=== PATIENT | female | born 1955 | race Caucasian/White ===

== ENCOUNTER 2021-02-27 11:18 | Emergency (ER) | payer MEDICAID, SELFPAY ==
--- NOTE | ~2021-02-27 | XR_ITS ---
EXAMINATION: XR CHEST CLINICAL INFORMATION: Shortness of breath and cough. Concern for pneumonia. COMPARISON: No priors. TECHNIQUE: Frontal view of the chest was obtained. FINDINGS: Lungs are mildly hypoexpanded. No consolidation or pulmonary edema. Mild interstitial thickening which may reflect sequelae of reactive airway disease or viral pneumonitis. No pneumothorax or pleural effusion. Cardiomediastinal silhouette within normal limits. No acute osseous abnormality. XR/XR chest 1V IMPRESSION: Hypoexpanded lungs. No consolidation. Mild interstitial thickening which may reflect sequelae of reactive airway disease or viral/atypical pneumonitis.
[2021-02-27 11:23] VITALS: BP 163/70; PULSE 69; RESP 20; TEMP 36.8; O2SAT 95; BMI 28.8
--- NOTE | 2021-02-27 12:21 | ECG_ITS ---
Test Reason : SOB Blood Pressure : / mmHG Vent. Rate : 060 BPM Atrial Rate : 060 BPM P-R Int : 136 ms QRS Dur : 070 ms QT Int : 418 ms P-R-T Axes : 027 -03 -05 degrees QTc Int : 418 ms Normal sinus rhythm Minimal voltage criteria for LVH, may be normal variant Borderline ECG No previous ECGs available Referred By: Ivonne Guzman Electronically Signed By:FILEMON GUILLORY
--- NOTE | 2021-02-27 12:22 | ED_ITS ---
HPI - General Adult General Chief complaint: General Medical Stated complaint: cough, fever, chest wall pain Time Seen by Provider: 02/27/21 12:07 Source: patient and family Mode of arrival: ambulatory Limitations: no limitations History of Present Illness HPI narrative: 65-year-old female with a past medical history of asthma, diabetes and hypertension here with cough, wheezing, shortness of breath, chest wall pain and subjective fevers x 9 days. Per family the patient received the pfizer vaccine 1. Of 2 on February 17. The next day she woke up with these symptoms. She was seen at a hospital in [place] and had an x-ray and a COVID screen and labs. She was diagnosed with bronchitis and was prescribed a course of azithromycin as well as a ProAir inhaler. She completed the course of antibiotics and has been using the inhaler but has continued symptoms. No abdominal pain, vomiting, diarrhea, leg swelling or pain Related Data Previous Rx's Medication Instructions Recorded albuterol sulfate 2.5 mg INHALATION Q4-6H PRN #75 ml 02/27/21 doxycycline monohydrate 100 mg PO BID #14 cap 02/27/21 prednisone 40 mg PO DAILY #8 tab 02/27/21 Allergies Allergy/AdvReac Type Severity Reaction Status Date / Time No Known Allergies Allergy Verified 02/27/21 11:22 Review of Systems Review of Systems: Yes all other systems are reviewed and are negative Constitutional: Constitutional: Reports no additional constitutional complai nts, Denies body ache(s), Denies chills, Reports fever(s) (subjective ), Denies headache(s) and Denies weakness Eyes: Eyes: Reports no additional eye complaints and Denies change in vision ENT: Reports system reviewed and no additional complaints, except as documented, Denies dizziness, Denies headache(s), Denies nasal congestion, Denies nasal discharge and Denies neck pain Cardiovascular: Cardiovascular: Reports no additional cardiovascular complaints, Reports chest pain (chest wall pain with coughing ), Denies leg edema and Reports dyspnea Respiratory: Respiratory: Reports no additional respiratory complaints, Reports cough and Reports dyspnea Gastrointestinal: Gastrointestinal: Reports no additional gastrointestinal complaints, Denies abdominal pain, Denies diarrhea, Denies nausea and Denies vomiting Genitourinary: Genitourinary: Reports no additional female genitourinary complaints and Denies urinary incontinence Musculoskeletal: Musculoskeletal: Reports no additional musculoskeletal complaints, Denies back pain, Denies arthralgias, Denies joint swelling, Denies neck pain, Denies numbness and Denies tingling Integumentary/Breasts: Skin/Breast: Reports system reviewed and no additional complaints, except as docu and Denies rash Neurologic: Reports system reviewed and no additional complaints, except as documented, Denies Abnormal speech present, Denies dizziness, Denies headac he(s), Denies numbness, Denies tingling and Denies weakness PMFSH Past Medical History Attestation statement: The following information was validated with the patient. Source: old records reviewed and nursing notes reviewed Medical History Diabetes Hypertension Surgical History H/O abdominal surgery H/O knee surgery Social History Social History Alcohol intake: never Smoking Status: Never smoker Advance Directives: No Advance Directives Information Provided: No Patient : No Physical Exam Vital Signs: Vital Signs: Last Vital Signs Temp 98.3 F 02/27/21 11:23 Pulse 61 02/27/21 14:28 Resp 25 H 02/27/21 14:00 BP 152/79 H 02/27/21 14:00 Pulse Ox 95 02/27/21 14:00 Body Mass Index 28.8 Const: General: cooperative, healthy appearing, comfortable and no acute distress Orientation/consciousness: patient oriented x3 Limitations: no limitations HENMT: Head: Yes normal to inspection Ears: hearing grossly normal bilaterally and TM's normal bilaterally General nose exam: Normal external nose present Face and sinus: Yes normal facial exam Mouth: Normal oral and palatal mucosa present Throat: Yes posterior oropharynx normal, Yes tonsils normal and Yes uvula midline Eyes: General: appearance normal, both eyes and all related structures Pupils: Equal, round and reactive pupils present Neck: Neck: Yes normal visual inspection, Yes full ROM and Yes no lymphadenopathy Chest: Chest palpation & inspection: normal inspection of the chest Resp: Other: Inspiratory and expiratory wheezing throughout, frequent bronchospastic cough noted. Effort & Inspection: normal respiratory effort Cardio: Rate: regular rate Rhythm: regular rhythm Peripheral pulses: Peripheral pulses 2+ throughout GI: Inspection: Yes normal to inspection Palpation (GI): Soft to palpation and nontender Auscultation: normal bowel sounds Back/Spine/Pelvis: Thoracic/Lumbar Spine: thoracic and lumbar spine normal to inspection Skin: General skin exam: no rashes or lesions noted Neuro: General: patient oriented x3, no focal motor deficits and normal sensation to monofilament Cranial nerves: Yes Equal, round and reactive pupils present Cognition (Neuro): normal cognition Speech: No Abnormal speech present Gait exam (Neuro): Normal gait present Motor exam (neuro): 5/5 motor strength present throughout Extrem: General: Yes normal to inspection, Yes no pedal edema and Yes no calf tenderness Course Course Course Narrative: 65-year-old female with a past medical history of asthma, diabetes, hypertension here with complaints of chest wall discomfort, shortness of breath, cough, wheezing and subjective fevers for 9 days. On exam stable vital signs. Frequent bronchospastic cough noted, inspiratory and expiratory wheezing throughout. Will need labs, EKG, CXR, COVID screen. Will give duoneb, solumedrol, magnesium and re-assess. 1420-labs show an elevated lactic acid which is not from infection and is from multiple uses of albuterol. Otherwise unremarkable. Will plan for repeat lactic acid. Chest x-ray shows a viral pneumonia which is not from a bacterial infection and does not require treatment. COVID screen negative. Patient is is feeling overall improved but does still have some mild shortness of breath and wheezing and would like a repeat albuterol. Will give 5 more additional mg and re-check. 1600-lactic acidosis from repeated albuterol treatments and not from infection. 1700-patient is feeling improved. Ambulated down the hallway with a pulse oximeter greater than 96% and no shortness of breath. Plan for discharge home. Reviewed worrisome signs and symptoms and when to return to the emergency department. Comfortable discharge home. Medical Decision Making MDM Narrative Medical decision making narrative: Asthma exacerbation, viral syndrome, pneumonia Medical Records Medical records reviewed: Yes I reviewed the patient's medical records. Lab Data Lab results reviewed: Yes I reviewed the patient's lab results. Result diagrams: 02/27/21 12:38 02/27/21 12:38 Labs: Lab Results 02/27/21 02/27/21 02/27/21 Range/Units 12:37 12:38 12:38 WBC 5.3 (4.8-10.8) X10*3/uL RBC 4.65 (4.20-5.50) X10*6/uL Hgb 13.9 (12.0-16.0) g/dl Hct 42.7 (37-47) % MCV 91.8 (80-98) fL MCH 29.9 (27.0-33.0) pg MCHC 32.6 (31.0-35.0) g/dl RDW 13.4 (11.0-16.0) % Plt Count 247 (160-400) X10*3/uL MPV 11.4 (9.4-12.3) fL Immature Gran % (Auto) 0.2 (0.0-0.4) % Neut % (Auto) 52.9 (45-73) % Lymph % (Auto) 35.8 (20-40) % [place] % (Auto) 7.9 (2-11) % Eos % (Auto) 2.6 (0-4) % Baso % (Auto) 0.6 (0-2) % Lymph # (Auto) 1.9 (1.2-4.9) X10*3/uL [place] # (Auto) 0.4 (0.1-1.2) X10*3/uL Eos # (Auto) 0.1 (0.0-0.4) X10*3/uL Baso # (Auto) 0.0 (0.0-0.2) X10*3/uL Abs Immat Gran (auto) 0.01 (0.00-0.03) X10*3/uL Absolute Neuts (auto) 2.8 (2.0-8.3) X10*3/uL Absolute Nucleated RBC 0.000 (0.0-0.012) X10*3/uL Nucleated RBC % (auto) 0.0 (0.0-0.2) /100WBC PT 12.4 (10.8-13.0) SEC INR 1.0 (0.9-1.1) Sodium 142 (135-145) mmol/L Potassium 4.5 (3.3-5.1) mmol/L Chloride 105 (96-108) mmol/L Carbon Dioxide 30 H (22-29) mmol/L Anion Gap 12 (12-20) BUN 21 H (9-16) mg/dL Creatinine 0.75 (0.5-1.4) mg/dL Estim Creat Clear Calc 75.7 Estimated GFR > 60 Random Glucose 136 H (60-115) mg/dL Lactic Acid (0.5-2.0) mmol/L Lactic Acid Fup @ 2Hr (0.5-2.0) mmol/L Calcium 9.5 (8.4-10.2) mg/dL Magnesium 2.3 (1.6-2.6) mg/dL Total Bilirubin 0.5 (0.0-1.0) mg/dL Direct Bilirubin < 0.2 (0.0-0.5) mg/dL AST 20 (5-31) U/L ALT 31 (0-31) U/L Alkaline Phosphatase 87 (39-117) U/L Total Protein 7.4 (6.5-8.0) g/dL Albumin 4.1 (3.5-5.0) g/dL COVID-19 (STAR) (Negative) COVID-19 Clin Com 02/27/21 02/27/21 02/27/21 Range/Units 12:38 12:38 15:47 WBC (4.8-10.8) X10*3/uL RBC (4.20-5.50) X10*6/uL Hgb (12.0-16.0) g/dl Hct (37-47) % MCV (80-98) fL MCH (27.0-33.0) pg MCHC (31.0-35.0) g/dl RDW (11.0-16.0) % Plt Count (160-400) X10*3/uL MPV (9.4-12.3) fL Immature Gran % (Auto) (0.0-0.4) % Neut % (Auto) (45-73) % Lymph % (Auto) (20-40) % [place] % (Auto) (2-11) % Eos % (Auto) (0-4) % Baso % (Auto) (0-2) % Lymph # (Auto) (1.2-4.9) X10*3/uL [place] # (Auto) (0.1-1.2) X10*3/uL Eos # (Auto) (0.0-0.4) X10*3/uL Baso # (Auto) (0.0-0.2) X10*3/uL Abs Immat Gran (auto) (0.00-0.03) X10*3/uL Absolute Neuts (auto) (2.0-8.3) X10*3/uL Absolute Nucleated RBC (0.0-0.012) X10*3/uL Nucleated RBC % (auto) (0.0-0.2) /100WBC PT (10.8-13.0) SEC INR (0.9-1.1) Sodium (135-145) mmol/L Potassium (3.3-5.1) mmol/L Chloride (96-108) mmol/L Carbon Dioxide (22-29) mmol/L Anion Gap (12-20) BUN (9-16) mg/dL Creatinine (0.5-1.4) mg/dL Estim Creat Clear Calc Estimated GFR Random Glucose (60-115) mg/dL Lactic Acid 2.2 H* (0.5-2.0) mmol/L Lactic Acid Fup @ 2Hr 3.3 H* (0.5-2.0) mmol/L Calcium (8.4-10.2) mg/dL Magnesium (1.6-2.6) mg/dL Total Bilirubin (0.0-1.0) mg/dL Direct Bilirubin (0.0-0.5) mg/dL AST (5-31) U/L ALT (0-31) U/L Alkaline Phosphatase (39-117) U/L Total Protein (6.5-8.0) g/dL Albumin (3.5-5.0) g/dL COVID-19 (STAR) Negative (Negative) COVID-19 Clin Com See Note Imaging Data Chest x-ray: Attestation: I personally reviewed and interpreted this imaging study as follows: Radiologist's impression: Hypoexpanded lungs. No consolidation. Mild interstitial thickening which may reflect sequelae of reactive airway disease or viral/atypical pneumonitis. ECG Data Attestation: I personally reviewed and interpreted this ECG as follows: Interpretation: Normal sinus rhythm, rate of 60, normal MD, normal QRS, normal QTC Discharge Plan Discharge Clinical Impression: Asthma Qualifiers: Asthma severity: mild Asthma persistence: persistent Asthma complication type: with acute exacerbation Qualified Code(s): J45.31 - Mild persistent asthma with (acute) exacerbation Pneumonia Qualifiers: Pneumonia type: due to unspecified organism Laterality: bilateral Patient Disposition: Home, Self-Care Instructions: Asthma (ED), Viral Pneumonia (ED) Additional Instructions: Start prednisone tomorrow Start doxycyline today Increase fluids, rest Prescriptions: New albuterol sulfate 2.5 mg /3 mL (0.083 %) solution for nebulization 2.5 mg inhalation Q4-6H PRN (Reason: shortness of breath or wheezing) Qty: 75 RF: 0 prednisone 20 mg tablet 40 mg PO DAILY Qty: 8 RF: 0 doxycycline monohydrate 100 mg capsule 100 mg PO BID Qty: 14 RF: 0 Referrals: Coleen Bright MD [Primary Care Provider] - 2 days Interventions: ED Discharge Assessment Last Done: 02/27/21 16:42 Discharge Date/Time: 02/27/21 16:43 Print Language: Greek
[2021-02-27] MEDS: Albuterol/Iprat 2.5/0.5MG 3 ML AMPUL.NEB INHALE (12:39)
[2021-02-27 12:40] VITALS: PULSE 63; O2SAT 96
[2021-02-27 12:43] VITALS: BP 159/68; PULSE 61; RESP 17; O2SAT 95
[2021-02-27 12:45] LABS: MANUAL DIFF FLAG NO
[2021-02-27 12:47] LABS: Basophils Percent Auto 0.6 % (0-2); Eosinophils Absolute Auto 0.1 X10*3/uL (0.0-0.4); Eosinophils Percent Auto 2.6 % (0-4); Hematocrit 42.7 % (37-47); Hemoglobin 13.9 g/dl (12.0-16.0); Imm Gran Abs Auto 0.01 X10*3/uL (0.00-0.03); Imm Gran Pct Auto 0.2 % (0.0-0.4); Lymphocytes Absolute Auto 1.9 X10*3/uL (1.2-4.9); Lymphocytes Percent Auto 35.8 % (20-40); Mean Corpuscular HGB Conc 32.6 g/dl (31.0-35.0); Mean Corpuscular Hemoglobin 29.9 pg (27.0-33.0); Mean Corpuscular Volume 91.8 fL (80-98); Mean Platelet Volume 11.4 fL (9.4-12.3); Monocytes Absolute Auto 0.4 X10*3/uL (0.1-1.2); Monocytes Percent Auto 7.9 % (2-11); Neutrophils Absolute Auto 2.8 X10*3/uL (2.0-8.3); Neutrophils Percent Auto 52.9 % (45-73); Platelet Count 247 X10*3/uL (160-400); Red Blood Count 4.65 X10*6/uL (4.20-5.50); Red Cell Distribution Width 13.4 % (11.0-16.0); White Blood Count 5.3 X10*3/uL (4.8-10.8)
[2021-02-27] MEDS: Magnesium Sulfate/H2O 2 GM/50 ML PIGGYBACK IV (12:50)
[2021-02-27] MEDS: 0.9 % Sodium Chloride 1,000 ML 999 ML IV (12:51)
[2021-02-27] MEDS: methylPREDNISolone Sod Succ 125 MG/2 ML VIAL IVPUSH (12:51)
[2021-02-27 12:55] LABS: Prothrombin Time 12.4 SEC (10.8-13.0)
[2021-02-27 13:05] LABS: COVID-19 Test Negative (Negative)
[2021-02-27 13:14] LABS: Lactic Acid 2.2 mmol/L (0.5-2.0)
[2021-02-27 13:17] LABS: Alanine Aminotransferase 31 U/L (0-31); Albumin Level 4.1 g/dL (3.5-5.0); Alkaline Phosphatase 87 U/L (39-117); Anion Gap 12 (12-20); Aspartate Amino Transferase 20 U/L (5-31); Bilirubin Direct < 0.2 mg/dL (0.0-0.5); Bilirubin Total 0.5 mg/dL (0.0-1.0); Blood Urea Nitrogen 21 mg/dL (9-16); Calcium 9.5 mg/dL (8.4-10.2); Carbon Dioxide 30 mmol/L (22-29); Chloride 105 mmol/L (96-108); Creatinine Clr Calc Pharmacy 75.7; Estimated Glomerular Filt Rate > 60; Glucose Random 136 mg/dL (60-115); Magnesium 2.3 mg/dL (1.6-2.6); Potassium 4.5 mmol/L (3.3-5.1); Sodium 142 mmol/L (135-145); Total Protein 7.4 g/dL (6.5-8.0)
[2021-02-27 14:00] VITALS: BP 152/79; PULSE 69; RESP 25; O2SAT 95
[2021-02-27] MEDS: Albuterol Sulfate (0.083%) 2.5 MG/3 ML VIAL.NEB 5 MG INHALE (14:27)
[2021-02-27 14:28] VITALS: PULSE 61; O2SAT 98
[2021-02-27 14:43] LABS: Reflex Lactate? Lactic Acid Added
--- NOTE | 2021-02-27 15:03 | PC.NURSE ---
Pt alert and oriented, VSS, reports having SOB and difficulty breathing starting this morning. Per sister pt has hx of Asthma and has pump at home. Pt has inspiratory and expiratory wheezing throughout and non-productive cough. Two breathing txs given by RT with good effect. Pt resting quietly at this time, lab pending, sister at bedside.
[2021-02-27 16:11] LABS: ~Lactic Acid-LAB USE ONLY 3.3 mmol/L (0.5-2.0)
[2021-02-27 17:50] LABS: Reflex Lactate? 2 Y
== END 2021-02-27 16:43 | disposition home or self-care (01) ==
PROVIDERS: Nurse Practitioner Family; Emergency Provider Emergency Medicine Emergency Medical Services; PCP Internal Medicine
DX: J18.9 Pneumonia, unspecified organism (principal); J45.31 Mild persistent asthma with (acute) exacerbation; R05 Cough; R07.89 Other chest pain; R50.9 Fever, unspecified; Z20.822 Contact with and (suspected) exposure to COVID-19; Z79.899 Other long term (current) drug therapy
CPT/HCPCS: 36415; 71045; 80048; 80076; 83605; 83735; 85025; 85610; 87040; 87635; 93005; 94640; 94644; 96361; 96365; 96375; 99284; J2930; J3475

== ENCOUNTER 2021-03-09 12:08 | Outpatient (REF) | payer MEDICAID, SELFPAY ==
[2021-03-09 13:17] LABS: MANUAL DIFF FLAG NO
[2021-03-09 13:22] LABS: Basophils Percent Auto 0.5 % (0-2); Eosinophils Absolute Auto 0.1 X10*3/uL (0.0-0.4); Eosinophils Percent Auto 2.3 % (0-4); Hematocrit 40.1 % (37-47); Imm Gran Abs Auto 0.02 X10*3/uL (0.00-0.03); Imm Gran Pct Auto 0.3 % (0.0-0.4); Lymphocytes Absolute Auto 1.6 X10*3/uL (1.2-4.9); Lymphocytes Percent Auto 25.9 % (20-40); Mean Corpuscular HGB Conc 32.4 g/dl (31.0-35.0); Mean Corpuscular Hemoglobin 29.7 pg (27.0-33.0); Mean Corpuscular Volume 91.6 fL (80-98); Mean Platelet Volume 12.5 fL (9.4-12.3); Monocytes Absolute Auto 0.5 X10*3/uL (0.1-1.2); Monocytes Percent Auto 8.5 % (2-11); Neutrophils Absolute Auto 3.9 X10*3/uL (2.0-8.3); Neutrophils Percent Auto 62.5 % (45-73); Platelet Count 237 X10*3/uL (160-400); Red Blood Count 4.38 X10*6/uL (4.20-5.50); Red Cell Distribution Width 13.8 % (11.0-16.0); White Blood Count 6.2 X10*3/uL (4.8-10.8)
[2021-03-09 13:45] LABS: Alanine Aminotransferase 29 U/L (0-31); Albumin Level 3.9 g/dL (3.5-5.0); Alkaline Phosphatase 80 U/L (39-117); Anion Gap 12 (12-20); Aspartate Amino Transferase 16 U/L (5-31); Bilirubin Direct < 0.2 mg/dL (0.0-0.5); Bilirubin Total 0.2 mg/dL (0.0-1.0); Blood Urea Nitrogen 16 mg/dL (9-16); Calcium 8.9 mg/dL (8.4-10.2); Carbon Dioxide 27 mmol/L (22-29); Chloride 106 mmol/L (96-108); Cholesterol 166 mg/dL; Estimated Glomerular Filt Rate > 60; Glucose Random 122 mg/dL (60-115); HDL Cholesterol 49 mg/dL; LDL Cholesterol Calculated 64 mg/dl; Potassium 4.8 mmol/L (3.3-5.1); Sodium 140 mmol/L (135-145); Total Protein 6.8 g/dL (6.5-8.0); Triglycerides 269 mg/dL
[2021-03-09 14:06] LABS: TSH reflex Free T4 1.54 uIU/mL (0.32-4.0); Vitamin D 25-OH Total 29.2 ng/mL (>30)
[2021-03-09 14:12] LABS: Creatinine Urine 63.15 mg/dL; Microalbumin Urine < 5.0 mg/L
== END 2021-03-09 12:09 | disposition home or self-care (01) ==
LOC: HO.LAB 12:08
PROVIDERS: PCP Internal Medicine; Visit Provider Internal Medicine
DX: Z00.00 Encounter for general adult medical examination without abnormal findings (principal)
CPT/HCPCS: 36415; 80048; 80061; 80076; 82043; 82306; 84443; 85025

== ENCOUNTER 2021-03-10 10:08 | Outpatient (REF) | payer MEDICAID, SELFPAY ==
--- NOTE | ~2021-03-10 | MM_ITS ---
EXAMINATION: MM SCREENING DIGITAL BREAST TOMOSYNTHESIS, BILATERAL CLINICAL INFORMATION: Screening. Asymptomatic. Prior [id number] mammography from [place] currently unavailable. No known family history breast cancer. Age 65. The lifetime risk of breast cancer based on the Tyrer-Cuzick Model is 6%. COMPARISON: None. TECHNIQUE: Digital breast tomosynthesis is performed in both the craniocaudal and mediolateral oblique views along with computer-aided detection (CAD). Synthesized 2D images are generated from the tomosynthesis. FINDINGS: There are scattered areas of fibroglandular density (ACR BI-RADS breast composition Category b). There are no significant masses, abnormal calcifications, or other abnormalities. There is intramammary node posterior 3:00 left breast. The skin contours are smooth. MM/MM tomosynthesis screening BI IMPRESSION: 1. No mammographic evidence of malignancy. 2. Radiology department staff will attempt to retrieve prior [id number] mammography to allow for comparison in an addendum report. ASSESSMENT: BI-RADS 2: Benign RECOMMENDATION: Routine annual mammography screening. This patient's information was entered into a reminder system with a target due date for their next mammogram.
== END 2021-03-10 10:09 | disposition home or self-care (01) ==
LOC: HO.MAMMO 10:08
PROVIDERS: Visit Provider Internal Medicine
DX: Z12.31 Encounter for screening mammogram for malignant neoplasm of breast (principal)
CPT/HCPCS: 77063; 77067

== ENCOUNTER 2021-09-09 11:46 | Day surgery (SDC) | payer MEDICAID, SELFPAY ==
--- NOTE | 2021-09-08 15:07 | HO.ANESPROP2 ---
Documented by User: Cyndi Street NP 09/22/21 14:21 HPI - Anesthesia Eval Consult details Narrative: 65yo F for Colonoscopy COUNTS INCLUDE 234 BEDS AT THE [facility] Past Medical History Medical History Diabetes Hypertension Surgical History Surgical History H/O abdominal surgery H/O knee surgery Social History Social History Alcohol intake: never Patient Tobacco Use Status: Never used Tobacco Second Hand Smoke Exposure: No Use of substances other than those prescribed or required for medical reasons: No Are you DNR?: No Advance Directives: No Advance Directives Information Provided: No Advance Directives on File: No Meds Allergies Allergy/AdvReac Type Severity Reaction Status Date / Time No Known Allergies Allergy Verified 02/27/21 11:22 Exam Exam Date and Time: September 08, 2021 1507 Assessment and Plan Assessment Anesthesia Assessment: Chart Reviewed Documented by User: Anaid Cobb MD 10/06/21 07:34 COUNTS INCLUDE 234 BEDS AT THE [facility] Past Medical History Medical History Diabetes Hypertension Family History Family history of problems with anesthesia: No Surgical History Surgical History H/O abdominal surgery H/O knee surgery History of Problems with Anesthesia: No Social History Social History Alcohol intake: never Patient Tobacco Use Status: Never used Tobacco Second Hand Smoke Exposure: No Use of substances other than those prescribed or required for medical reasons: No Are you DNR?: No Advance Directives: No Advance Directives Information Provided: No Advance Directives on File: No Meds Allergies Allergy/AdvReac Type Severity Reaction Status Date / Time No Known Allergies Allergy Verified 02/27/21 11:22 Exam Height,Weight and Vital Signs: Height 5 ft 4 in Weight 71.668 kg Vital Signs Temp Pulse Resp BP Pulse Ox 98.1 F 60 16 139/71 96 09/09/21 12:10 09/09/21 12:10 09/09/21 12:10 09/09/21 12:10 09/09/21 12:10 Pertinent Lab Results Pertinent Lab Results: Lab Results 09/09/21 Range/Units 12:19 POC Glucose 131 H (60-115) mg/dL Airway Mallampati Class: II TM Dist: >3cm Neck ROM: Full Heart: RRR Lungs: CTAB Assessment and Plan Final Anesthetic Review Family History of Problems with Anesthesia: No History of Problems with Anesthesia: No NPO: Yes ASA Class: II Final Preanesthetic Review: No Changes in Pt Med Stat, Meds/Allgs Chart Reviewed, Consent Obtained/Reviewed and Anes Risks/Benef Reviewed Patient Risk: Low Procedure Risk: Low Anesthetic Plan Anesthetic Plan: MAC: Disposition: Standard PACU
[2021-09-09 12:10] VITALS: BP 139/71; PULSE 60; RESP 16; TEMP 36.7; O2SAT 96; BMI 27.1
[2021-09-09] MEDS: Lactated Ringers 1,000 ML 100 ML IVCONT (12:21)
[2021-09-09 12:22] LABS: Glucose, Whole Blood 131 mg/dL (60-115)
--- NOTE | 2021-09-09 12:50 | MHC.SHP ---
Pre-Procedural Eval Section A Date of Service: 09/09/21 The patient is an INPATIENT: No Changes since office visit: No Cold of Flu in the past 2 weeks, No New Medical Problems, No Changes in Medication and No Patient answered all questions Section B Chief Complaint: screening Allergies: Allergies Allergy/AdvReac Type Severity Reaction Status Date / Time No Known Allergies Allergy Verified 02/27/21 11:22 Plan I have reviewed the history and physical and performed a pertinent physical examination on my patient. No changes have occurred unless specified.
--- NOTE | 2021-09-09 13:53 | P.BOP_ITS ---
Brief Operative Note Date of Service: 09/09/21 Pre-op diagnosis: screening Post-op diagnosis: same (colon polyps) Procedure: colonoscopy Surgeon: Rhett Messina Was an Sterile Supply Technician used for this Procedure?: No Estimated blood loss (mL): 2 Pathology: other (polyps x2) Condition: stable Disposition: PACU
[2021-09-09 14:00] VITALS: BP 75/40; PULSE 63; RESP 16; TEMP 36.5; O2SAT 94
[2021-09-09 14:02] VITALS: BP 79/39
[2021-09-09 14:05] VITALS: BP 95/50
[2021-09-09 14:40] VITALS: BP 153/67; PULSE 56; RESP 16; TEMP 36.5; O2SAT 99
--- NOTE | 2021-09-10 01:04 | OP_ITS ---
SURGEON: Rhett Messina MD INDICATIONS: Colon cancer screening. PREOPERATIVE DIAGNOSIS: POSTOPERATIVE DIAGNOSIS: PROCEDURE PERFORMED: ESTIMATED BLOOD LOSS: COMPLICATIONS: ANESTHESIA: Medications, monitored anesthesia care. ASSISTANTS: SPECIMENS: PROCEDURES PERFORMED: Colonoscopy to the terminal ileum with biopsy and snare polypectomy. DESCRIPTION OF PROCEDURE: History and physical performed. The risks and benefits of the procedure were explained to the patient. Informed consent was obtained. The patient was placed in left lateral decubitus position. A digital rectal exam was performed and was found to be normal. The Olympus pediatric video colonoscope was introduced into the rectum and advanced to the cecum without difficulty. The cecum was identified by transillumination, palpation, and identification of the ileocecal valve. Examination was performed. The scope was removed. She tolerated the procedure well and was taken to the recovery room in stable condition. FINDINGS: The terminal ileum was normal. Visualized colonic mucosa was normal. The quality of prep was good. In the cecum, was a less than 5 mm sessile polyp that was removed with biopsy forceps. In the rectum, was a 7 mm polyp, which was snared and recovered via suction. No other polyps were identified. Retroflexed examination was normal. IMPRESSION: Colon polyps. RECOMMENDATION: Follow up the biopsy results. MD CURT Esquivel/DAVIDL / [id number]
== END 2021-09-09 15:42 | disposition home or self-care (01) ==
PROVIDERS: Visit Provider Internal Medicine Gastroenterology
PROC: 0DJD8ZZ Inspection of Lower Intestinal Tract, Via Natural or Artificial Opening Endoscopic (ICD-10-PCS; CPT 45378; principal; 2021-09-09 13:00)
DX: Z12.11 Encounter for screening for malignant neoplasm of colon (principal); K63.5 Polyp of colon; K62.1 Rectal polyp; K21.9 Gastro-esophageal reflux disease without esophagitis; K59.00 Constipation, unspecified; I10 Essential (primary) hypertension; J45.909 Unspecified asthma, uncomplicated; E11.9 Type 2 diabetes mellitus without complications; Z79.4 Long term (current) use of insulin; Z79.899 Other long term (current) drug therapy
CPT/HCPCS: 45385; 45380; 82947; 88305

== ENCOUNTER 2022-04-07 10:20 | Outpatient (REF) | payer MEDICARE, MEDICAID, SELFPAY ==
--- NOTE | ~2022-04-07 | MM_ITS ---
EXAMINATION: MM SCREENING DIGITAL BREAST TOMOSYNTHESIS, BILATERAL CLINICAL INFORMATION: Screening. Asymptomatic. The lifetime risk of breast cancer based on the Tyrer-Cuzick Model is 4%. COMPARISON: Mammography: 03/10/2021; outside mammography 07/25/2017, 06/07/2016 [place] TECHNIQUE: Digital breast tomosynthesis is performed in both the craniocaudal and mediolateral oblique views along with computer-aided detection (CAD). Synthesized 2D images are generated from the tomosynthesis. FINDINGS: There are scattered areas of fibroglandular density (ACR BI-RADS breast composition Category b). There are no significant masses, abnormal calcifications, or other abnormalities. No architectural abnormality or developing density. No significant changes. MM/MM tomosynthesis screening BI IMPRESSION: There are no significant changes from prior study. ASSESSMENT: BI-RADS 1: Negative RECOMMENDATION: Routine annual mammography screening. This patient's information was entered into a reminder system with a target due date for their next mammogram.
== END 2022-04-07 10:21 | disposition home or self-care (01) ==
LOC: HO.MAMMO 10:20
PROVIDERS: Visit Provider Internal Medicine
DX: Z12.31 Encounter for screening mammogram for malignant neoplasm of breast (principal)
CPT/HCPCS: 77063; 77067

== ENCOUNTER 2023-03-14 13:57 | Outpatient (REF) | payer OTHER, SELFPAY ==
--- NOTE | ~2023-03-14 | XR_ITS ---
EXAMINATION: XR LUMBOSACRAL SPINE CLINICAL INFORMATION: Pain COMPARISON: None available. TECHNIQUE: Three views of the lumbosacral spine. FINDINGS: Mild 2 mm anterior subluxation of L4 with respect to L3 and L5. Bone alignment is otherwise normal. No fracture or dislocation. Normal disc spaces. Mild degenerative spondylosis at L3-L4 and L4-L5. Lower lumbar spine facet arthritis. XR/XR lumbar spine 2-3V IMPRESSION: Mild degenerative changes.
== END 2023-03-14 13:58 | disposition home or self-care (01) ==
LOC: HO.HHCX 13:57
PROVIDERS: Visit Provider Internal Medicine
DX: M54.41 Lumbago with sciatica, right side (principal)
CPT/HCPCS: 72100

== ENCOUNTER 2023-04-30 10:32 | Outpatient (REF) | payer OTHER, SELFPAY ==
--- NOTE | ~2023-04-30 | MM_ITS ---
EXAMINATION: MM SCREENING DIGITAL BREAST TOMOSYNTHESIS, BILATERAL CLINICAL INFORMATION: Screening. Asymptomatic. The lifetime risk of breast cancer based on the Tyrer-Cuzick Model is 4%. COMPARISON: Mammography: This study is compared with prior exams dating back to 2017. TECHNIQUE: Digital breast tomosynthesis is performed in both the craniocaudal and mediolateral oblique views along with computer-aided detection (CAD). Synthesized 2D images are generated from the tomosynthesis. FINDINGS: There are scattered areas of fibroglandular density (ACR BI-RADS breast composition Category b). There are no significant masses, abnormal calcifications, or other abnormalities. MM/MM tomosynthesis screening BI IMPRESSION: No mammographic evidence of malignancy. ASSESSMENT: BI-RADS BI-RADS 1 - Negative RECOMMENDATION: Routine annual mammography screening. 1 year F/U This examination should not preclude the clinical evaluation of a suspicious palpable abnormality. This patient's information was entered into a reminder system with a target due date for their next mammogram.
== END 2023-04-30 10:33 | disposition home or self-care (01) ==
LOC: HO.MAMMO 10:32
PROVIDERS: PCP Internal Medicine; Visit Provider Internal Medicine
DX: Z12.31 Encounter for screening mammogram for malignant neoplasm of breast (principal)
CPT/HCPCS: 77063; 77067

== ENCOUNTER → 2023-04-30 16:15 | Outpatient (BNV) | payer OTHER, SELFPAY | PROVIDERS: PCP Internal Medicine; Visit Provider Radiology Diagnostic Radiology | DX: Z12.31 Encounter for screening mammogram for malignant neoplasm of breast (principal) | CPT/HCPCS: 77063; 77067 ==

== ENCOUNTER 2023-05-01 09:02 | Day surgery (SDC) | payer OTHER, SELFPAY ==
[2023-05-01 06:18] VITALS: BMI 28.5
[2023-05-01 10:04] VITALS: BP 144/76; PULSE 64; RESP 20; TEMP 37.1; O2SAT 98
[2023-05-01 10:05] LABS: Glucose, Whole Blood 121 mg/dL (60-115)
--- NOTE | 2023-05-01 10:12 | HO.ANESPROP2 ---
[facility] Past Medical History Medical History (Updated 04/30/23 @ 14:27 by Mare Galeano RN) Diabetes GERD (gastroesophageal reflux disease) Hypertension Migraine Mood disorder Osteoarthritis Family History Family history of problems with anesthesia: No Surgical History Surgical History (Updated 04/30/23 @ 14:27 by Mare Galeano RN) H/O abdominal surgery H/O colonoscopy H/O knee surgery H/O: hysterectomy History of surgery on lower extremity History of Problems with Anesthesia: No Social History Social History Alcohol intake: never Patient Tobacco Use Status: Never used Tobacco Second Hand Smoke Exposure: No Are you DNR?: No Advance Directives: No Advance Directives Information Provided: Yes Meds Allergies Allergy/AdvReac Type Severity Reaction Status Date / Time No Known Allergies Allergy Verified 02/27/21 11:22 Active Medications: Current Medications Albuterol Sulfate (Albuterol Sulfate (0.083%) 2.5 Mg/3 Ml Vial.Neb) 2.5 mg INHALE ONCE PRN PRN Reason: Shortness of Breath/Wheezing Lactated Ringer's (Lr) 1,000 mls @ 100 mls/hr IVCONT .Q10H TOMMY Home Medications Medication Instructions Recorded Confirmed Last Taken Type atorvastatin 10 mg tablet 10 mg PO DAILY 04/30/23 04/30/23 Unknown History dapagliflozin 5 mg-metformin ER 1 tab PO BID 04/30/23 04/30/23 Unknown History 1,000 mg tablet,extended release 24hr (Xigduo XR) dulaglutide 3 mg/0.5 mL mg subcut QWEEK 04/30/23 Unknown History subcutaneous pen injector (Trulicity) famotidine 20 mg tablet 20 mg PO BID 04/30/23 04/30/23 Unknown History insulin glargine 100 unit/mL (3 40 unit subcut QPM 04/30/23 04/30/23 Unknown History mL) subcutaneous pen (Lantus Solostar U-100 Insulin) losartan 50 mg tablet 50 mg PO QAM 04/30/23 04/30/23 Unknown History pioglitazone 15 mg tablet 15 mg PO QAM 04/30/23 04/30/23 Unknown History repaglinide 2 mg tablet 4 mg PO TID 04/30/23 04/30/23 Unknown History Exam Exam Date and Time: May 01, 2023 1012 Height,Weight and Vital Signs: Height 5 ft 4 in Weight 75.296 kg Last Vital Signs Temp 98.8 F 05/01/23 10:04 Pulse 64 05/01/23 10:04 Resp 20 05/01/23 10:04 BP 144/76 H 05/01/23 10:04 Pulse Ox 98 05/01/23 10:04 O2 Del Method Room Air 05/01/23 10:04 Pertinent Lab Results Pertinent Lab Results: Laboratory Tests 05/01/23 10:02 POC Glucose 121 H Airway Mallampati Class: II TM Dist: >3cm Neck ROM: Full Assessment and Plan Assessment Anesthesia Assessment: Anesthesia Plan Discussed and Chart Reviewed Final Anesthetic Review Family History of Problems with Anesthesia: No History of Problems with Anesthesia: No NPO: Yes ASA Class: III Final Preanesthetic Review: No Changes in Pt Med Stat, Meds/Allgs Chart Reviewed, Consent Obtained/Reviewed and Anes Risks/Benef Reviewed Patient Risk: Intermediate Procedure Risk: Low Anesthetic Plan Anesthetic Plan: MAC: Disposition: Standard PACU
[2023-05-01] MEDS: Lactated Ringers 1,000 ML 100 ML IVCONT (10:18)
--- NOTE | 2023-05-01 12:01 | MHC.SHP ---
Pre-Procedural Eval Section A Date of Service: 05/01/23 The patient is an INPATIENT: No Changes since office visit: No Cold of Flu in the past 2 weeks, No New Medical Problems, No Changes in Medication and No Patient answered all questions The History & Physical has been completed within 30 days and I have reviewed it.: Yes Section B Chief Complaint: gerd Allergies: Allergies Allergy/AdvReac Type Severity Reaction Status Date / Time No Known Allergies Allergy Verified 02/27/21 11:22 Plan I have reviewed the history and physical and performed a pertinent physical examination on my patient. No changes have occurred unless specified. Time Spent With Patient Time: Total time managing care of this patient today ____ minutes.
--- NOTE | 2023-05-01 12:23 | PM.OP ---
Brief Operative Note Date of Service: 05/01/23 Pre-op diagnosis: gerd Post-op diagnosis: same Procedure: egd Surgeon: Rhett Messina Anesthesia: MAC Was an Haul Truck Driver used for this Procedure?: No Estimated blood loss (mL): 2 Pathology: other Condition: stable Disposition: PACU
[2023-05-01 12:25] VITALS: BP 106/61; PULSE 70; RESP 16; TEMP 36.1; O2SAT 97
[2023-05-01 12:30] VITALS: BP 124/61; PULSE 66; RESP 16; O2SAT 97
[2023-05-01 12:35] VITALS: BP 116/65; PULSE 57; RESP 16; O2SAT 96
[2023-05-01 12:40] VITALS: BP 114/59; PULSE 74; RESP 18; O2SAT 97
[2023-05-01 12:55] VITALS: BP 128/95; PULSE 60; RESP 18; TEMP 36.8; O2SAT 99
--- NOTE | 2023-05-01 20:52 | OP_ITS ---
DATE OF SERVICE: 05/01/2023 SURGEON: Rhett Messina MD INDICATIONS: Gastroesophageal reflux disease. PREOPERATIVE DIAGNOSIS: POSTOPERATIVE DIAGNOSIS: PROCEDURE PERFORMED: Upper endoscopy with biopsy. ESTIMATED BLOOD LOSS: COMPLICATIONS: ANESTHESIA: Monitored anesthesia care. ASSISTANTS: SPECIMENS: DESCRIPTION OF PROCEDURE: A history and physical was performed. The risks and benefits of the procedure were explained to the patient. Informed consent was obtained. The patient was placed in the left lateral decubitus position. The Olympus video gastroscope was introduced into the esophagus, stomach, and duodenum. Examination was performed. The scope was removed. She tolerated the procedure well and was returned to the recovery area in stable condition. FINDINGS: Esophagus: The esophagus was normal. The EG junction was slightly irregular. This was biopsied. Stomach: The stomach showed no evidence of masses or ulcers. There was a polypoid nodular area in the body on the posterior wall measuring approximately 12 mm. This appeared benign. Two biopsies were obtained from the mucosa. Antral biopsies were obtained to rule out H pylori. Duodenum: The bulb and 2nd portion were normal. IMPRESSION: 1. Gastroesophageal reflux disease. 2. Hiatal hernia. RECOMMENDATION: Follow up the biopsy results. MD CURT Esquivel/JADYN / [id number]
== END 2023-05-01 14:01 | disposition home or self-care (01) ==
PROVIDERS: PCP Internal Medicine; Visit Provider Internal Medicine Gastroenterology
PROC: 0DJ08ZZ Inspection of Upper Intestinal Tract, Via Natural or Artificial Opening Endoscopic (ICD-10-PCS; CPT 43235; principal; 2023-05-01 10:50)
DX: K21.9 Gastro-esophageal reflux disease without esophagitis (principal); K44.9 Diaphragmatic hernia without obstruction or gangrene; E11.9 Type 2 diabetes mellitus without complications; I10 Essential (primary) hypertension; J45.909 Unspecified asthma, uncomplicated
CPT/HCPCS: 43239; 82947; 88305; 88342

== ENCOUNTER 2023-05-25 09:50 | Day surgery (SDC) | payer OTHER, SELFPAY ==
[2023-05-25 06:31] VITALS: BMI 28.1
[2023-05-25 10:24] LABS: Glucose, Whole Blood 135 mg/dL (60-115)
[2023-05-25 10:27] VITALS: BP 168/72; PULSE 73; RESP 20; TEMP 36.8; O2SAT 97
--- NOTE | 2023-05-25 10:28 | PC.NURSE ---
no meds taken today
[2023-05-25] MEDS: Lactated Ringers 1,000 ML 100 ML IVCONT (10:48)
[2023-05-25 14:28] VITALS: BP 110/61; PULSE 69; RESP 16; TEMP 36.1; O2SAT 95
[2023-05-25 14:43] VITALS: BP 123/66; PULSE 70; RESP 14; O2SAT 98
--- NOTE | 2023-05-25 14:46 | MHC.SHP ---
Pre-Procedural Eval Section A Date of Service: 05/25/23 The patient is an INPATIENT: No Changes since office visit: No Cold of Flu in the past 2 weeks, No New Medical Problems, No Changes in Medication and No Patient answered all questions The History & Physical has been completed within 30 days and I have reviewed it.: Yes Section B Chief Complaint: Gastric intestinal metaplasia, unspecified Allergies: Allergies Allergy/AdvReac Type Severity Reaction Status Date / Time No Known Allergies Allergy Verified 02/27/21 11:22 Plan I have reviewed the history and physical and performed a pertinent physical examination on my patient. No changes have occurred unless specified. Time Spent With Patient Time: Total time managing care of this patient today ____ minutes.
--- NOTE | 2023-05-25 14:46 | PM.OP ---
Brief Operative Note Date of Service: 05/25/23 Pre-op diagnosis: gastric intestinal metaplasia Post-op diagnosis: same Procedure: egd Surgeon: Rhett Messina Anesthesia: MAC Was an Moderate Needs Teacher used for this Procedure?: No Estimated blood loss (mL): 5 Pathology: other Condition: stable Disposition: PACU
[2023-05-25 14:58] VITALS: BP 147/66; PULSE 68; RESP 16; TEMP 36.1; O2SAT 98
--- NOTE | 2023-05-26 01:12 | OP_ITS ---
DATE OF SERVICE: 05/25/2023 SURGEON: Rhett Messina MD INDICATIONS: Gastrointestinal metaplasia. PREOPERATIVE DIAGNOSIS: POSTOPERATIVE DIAGNOSIS: PROCEDURE PERFORMED: Upper endoscopy with biopsy. ESTIMATED BLOOD LOSS: COMPLICATIONS: ANESTHESIA: Monitored anesthesia care. ASSISTANTS: SPECIMENS: DESCRIPTION OF PROCEDURE: A history and physical was performed. The risks and benefits of the procedure were explained to the patient. Informed consent was obtained. The patient was placed in the left lateral decubitus position. The Olympus video gastroscope was introduced into the esophagus, stomach, and duodenum. Examination was performed. The scope was removed. She tolerated the procedure well and was returned to the recovery area in stable condition. FINDINGS: Esophagus: The esophagus was normal. There was a small sliding hiatal hernia. Stomach: The stomach showed no evidence of masses or ulcers. There was an antral nodule which had been identified after previous endoscopy. This was biopsied. Biopsies were obtained from throughout the stomach because of her history of Gastrointestinal metaplasia. No other lesions were identified. Duodenum: The bulb and 2nd portion were normal. IMPRESSION: Gastrointestinal metaplasia. RECOMMENDATION: Follow up the biopsy results. MD [facility] Esquivel/JADYN / [id number]
== END 2023-05-25 15:19 | disposition home or self-care (01) ==
PROVIDERS: PCP Internal Medicine; Visit Provider Internal Medicine Gastroenterology
PROC: 0DJ08ZZ Inspection of Upper Intestinal Tract, Via Natural or Artificial Opening Endoscopic (ICD-10-PCS; CPT 43235; principal; 2023-05-25 12:30)
DX: K31.A0 Gastric intestinal metaplasia, unspecified (principal); K29.70 Gastritis, unspecified, without bleeding; K44.9 Diaphragmatic hernia without obstruction or gangrene; K21.9 Gastro-esophageal reflux disease without esophagitis; I10 Essential (primary) hypertension; E78.00 Pure hypercholesterolemia, unspecified; E11.9 Type 2 diabetes mellitus without complications; J45.909 Unspecified asthma, uncomplicated; G43.909 Migraine, unspecified, not intractable, without status migrainosus; Z79.4 Long term (current) use of insulin; Z79.899 Other long term (current) drug therapy; Z98.890 Other specified postprocedural states
CPT/HCPCS: 43239; 82947; 88305; 88342

== ENCOUNTER 2024-02-26 19:48 | Outpatient (REF) | payer OTHER, SELFPAY ==
[2024-02-26 19:57] LABS: Appearance Urine Cloudy; Color Urine Yellow; Glucose Urine UA >=1000 mg/dL (Negative); Leukocyte Esterase Urine Negative (Negative); Nitrite Urine Positive (Negative); PH 5.5 (5.0-9.0); Specific Gravity - Urine >= 1.030 (1.005-1.025); UMIC TRIGGER UACC YES; Urine Blood Trace (Negative); Urine Ketones Negative (Negative); Urine Protein Negative (Neg-Trace)
[2024-02-26 20:45] LABS: Bacteria Urine 4+ (None Seen); Hyaline Casts Urine 0-2 /LPF (0-2); RBC Urine 0-2 /HPF (0-2); UACC Culture Trigger YES; WBC Urine 21-50 /HPF (0-5)
== END 2024-02-26 19:49 | disposition home or self-care (01) ==
LOC: HO.HHCLNP 19:48
PROVIDERS: Visit Provider Internal Medicine
DX: R39.9 Unspecified symptoms and signs involving the genitourinary system (principal)
CPT/HCPCS: 81001; 87086; 87088; 87186

== ENCOUNTER 2024-02-27 08:53 | Outpatient (REF) | payer OTHER, SELFPAY ==
[2024-02-27 12:10] LABS: Anion Gap 14 (12-20); Blood Urea Nitrogen 24 mg/dL (9-16); Calcium 9.5 mg/dL (8.4-10.2); Carbon Dioxide 25 mmol/L (22-29); Chloride 107 mmol/L (96-108); Cholesterol 171 mg/dL (<200); Estimated Glomerular Filt Rate > 60; Glucose Random 167 mg/dL (60-115); HDL Cholesterol 56 mg/dL (>40); LDL Cholesterol Calculated 92 mg/dL (<100); Sodium 142 mmol/L (135-145); Triglycerides 118 mg/dL (<150)
== END 2024-02-27 08:54 | disposition home or self-care (01) ==
LOC: HO.HHCL 08:53
PROVIDERS: Visit Provider Internal Medicine
DX: Z00.00 Encounter for general adult medical examination without abnormal findings (principal); R39.9 Unspecified symptoms and signs involving the genitourinary system; I10 Essential (primary) hypertension
CPT/HCPCS: 36415; 80048; 80061

== ENCOUNTER 2024-05-05 09:58 | Outpatient (REF) | payer OTHER, SELFPAY | END 2024-05-05 09:59 | disposition home or self-care (01) | LOC: HO.MAMMO 09:58 | PROVIDERS: PCP Internal Medicine; Visit Provider Internal Medicine | DX: Z12.31 Encounter for screening mammogram for malignant neoplasm of breast (principal) | CPT/HCPCS: 77063; 77067 ==

== ENCOUNTER → 2024-05-05 10:15 | Outpatient (BNV) | payer OTHER, SELFPAY | PROVIDERS: PCP Internal Medicine; Visit Provider Radiology Diagnostic Radiology | DX: Z12.31 Encounter for screening mammogram for malignant neoplasm of breast (principal) | CPT/HCPCS: 77063; 77067 ==

== ENCOUNTER 2024-05-22 16:07 | Outpatient (REF) | payer OTHER, SELFPAY | END 2024-05-22 16:08 | disposition home or self-care (01) | LOC: HO.HHCLNP 16:07 | PROVIDERS: Visit Provider Internal Medicine | DX: R39.9 Unspecified symptoms and signs involving the genitourinary system (principal) | CPT/HCPCS: 87086 ==

== ENCOUNTER 2025-05-01 11:54 | Outpatient (REF) | payer OTHER, SELFPAY ==
--- OUTSIDE RECORDS SUMMARY | 2024-08-14 10:15 | XMS_ITS ---
Author Organization [facility] Address [address] [place] [phone] Care Team Providers Care General Scrap Worker Name Role Phone Coleen Alvarez M.D. Primary Care Provider Freddy Messina Jr, Rhett Martin REASON FOR VISIT Patient presents today for GERD Encounters Encounter Location Date Provider Diagnosis [facility] [address] [facility] [address] [place] [phone] 08/14/2024 Rhett Messina Jr Plan Of Treatment Next Appt Details Provider Name:Rhett jasmine Jr, 05/21/2025 02:35:00 PM, [address] [place] [address], [address], [place], [address], Progress Notes * SHAJI BRANDTDOB:0 1955 (69 yo F)Acc No.[id number]:08/14/2024 Progress Notes Patient: SHAJI KO Provider: Siobhan Messina MD :1955 A ge:68 Y S ex:Female Date:08/14/2024 Address:[address] [place] [address] Pcp:Coleen Alvarez M.D. Subjective: * Chief Complaints: [...] 1 Generated for Mary parry/Traci/Beatriz on: 0 05/01/2025 10:56 AM EDT
--- OUTSIDE RECORDS SUMMARY | 2025-05-01 12:17 | XMS_ITS | Clinical Summary ---
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 Blood Glucose Monitoring Suppl (FreeStyle Lite) deviceIndicatio ns:Type 2 diabetes mellitus without complication, without long-term current use of insulin ([facility]) Inject 1 each under the skin 2 times daily. Use to monitor blood glucose twice daily 1 each 023 Active acetaminophen (Tylenol 8 Hour) 650 MG ER tabletIndicatio ns:Chronic right-sided low back pain with right-sided sciatica TAKE 2 TABLETS BY MOUTH EVERY 8 HOURS NEEDED FOR MILD PAIN FOR UP TO 10 DAYS DO NOT BREAK, CRUSH, DISSOLVE OR CHEW 30 tablet 1 023 Active ibuprofen 800 MG tabletIndicatio ns:Chronic right-sided low back pain with right-sided sciatica TAKE 1 TABLET BY MOUTH EVERY 8 HOURS NEEDED FOR MILD PAIN 30 tablet 1 023 Active Blood Glucose Monitoring Suppl (FreeStyle Portis Lite) w/Device kitIndications: Type 2 diabetes mellitus with hyperglycemia, with long-term current use of insulin ([facility]) Use to test blood sugar 2 times daily 1 kit 024 Active Blood Glucose Monitoring Suppl (ONE TOUCH ULTRA 2) w/Device kit USE DIRECTED TO TEST BLOOD SUGAR TWICE DAILY 1 kit 024 Active Blood Glucose Monitoring Suppl (Contour Next EZ) w/Device kit Use for glucose check 1 kit 024 Active Blood Glucose Monitoring Suppl (Contour Next Gen Monitor) w/Device kitIndications: Type 2 diabetes mellitus with hyperglycemia, with long-term current use of insulin ([facility]) 1 each 2 times daily. 1 kit 024 Active dextran 70-hypromellose (artificial tears) 0.1-0.3 % ophthalmic solutionIndicat ions:Red eyes Administer 1 drop into both eyes if needed in the morning, at noon, and at bedtime for dry eyes. 30 mL 1 024 2024 Active OneTouch Delica Lancets 33G miscIndications :Type 2 diabetes mellitus with hyperglycemia, with long-term current use of insulin ([facility]) 1 each 3 times daily. TEST BLOOD SUGAR TWICE A DAY 100 each 11 Active TRUEplus Lancets 33G miscIndications :Type 2 diabetes mellitus with hyperglycemia, unspecified whether extermination inspector insulin use ([facility]) Use to check blood sugar 3x daily 300 each 024 Active hydrOXYzine pamoate (Vistaril) 25 MG capsuleIndicati ons:Anxiety Take 1 tablet by mouth up to twice a day as needed for anxiety and difficulty sleeping. 30 capsule 024 Active insulin pen needle (UltiCare Mini Pen [place]) 31G x 6 mm miscIndications :Type 2 diabetes mellitus with hyperglycemia, unspecified whether halfway insulin use ([facility]) USE FOR inyectar INSULIN DAILY DIRECTED 100 each 3 Active glucose blood test stripIndication s:Type 2 diabetes mellitus without complication, with long-term current use of insulin ([facility]) Use as instructed kip tello 100 each 12 024 Active Blood Pressure Monitoring (Blood Pressure Cuff) miscIndications :Essential hypertension 1 each Once daily. 1 each 024 Active polyvinyl alcohol (Liquifilm Tears) 1.4 % ophthalmic solutionIndicat ions:Other specified disorders of eye and adnexa PLACE 1 DROP IN EACH EYE THREE TIMES DAILY IN THE MORNING, AT NOON, AND AT BEDTIME NEEDED FOR DRY EYES 30 mL 1 025 Active Lantus SoloStar 100 UNIT/ML penIndications: Type 2 diabetes mellitus with other specified complication, with long-term current use of insulin ([facility]) INJECT 40 UNITS SUBCUTANEOUSLY EVERY DAY IN THE EVENING DIRECTED 15 mL 3 025 Active pioglitazone (Actos) 15 MG tabletIndicatio ns:Type 2 diabetes mellitus with hyperglycemia, unspecified whether halfway insulin use ([facility]) TAKE 1 TABLET BY MOUTH EVERY DAY IN THE MORNING 90 tablet 025 Active losartan (Cozaar) 50 MG tabletIndicatio ns:Primary hypertension TAKE 1 TABLET BY MOUTH EVERY DAY 90 tablet 025 Active atorvastatin (Lipitor) 10 MG tabletIndicatio ns:Primary hypertension TAKE 1 TABLET BY MOUTH EVERY DAY IN THE MORNING 90 tablet 025 Active famotidine (Pepcid) 20 MG tabletIndicatio ns:Heartburn TAKE 1 TABLET BY MOUTH TWICE DAILY 180 tablet 025 Active dapagliflozin-m etFORMIN ER (Xigduo XR) 5-1000 MGIndications:T ype 2 diabetes mellitus with hyperglycemia, unspecified whether extermination inspector insulin use ([facility]) take 1 tablet by oral route every day twice a day 180 tablet 1 025 Active tiZANidine (Zanaflex) 2 MG tabletIndicatio ns:Strain of left trapezius muscle, initial encounter Take 1 tablet (2 mg) by mouth every 8 (eight) hours if needed for muscle spasms for up to 7 days. 20 tablet 025 Active repaglinide (Prandin) 2 MG tabletIndicatio ns:Type 2 diabetes mellitus with hyperglycemia, with long-term current use of insulin ([facility]) TAKE 2 TABLETS BY MOUTH THREE TIMES DAILY 15 TO 30 MINUTES BEFORE MEALS 540 tablet 1 025 Active semaglutide (Ozempic, 1 MG/DOSE,) 4 MG/3ML solution pen-injectorInd ications:Type 2 diabetes mellitus with hyperglycemia, with long-term current use of insulin ([facility]) Inject 1 mg under the skin 1 (one) time per week. 1 each 025 Active lidocaine (Lidoderm) 5 % patchIndication s:Chronic right-sided low back pain with right-sided sciatica Apply 1 patch topically Once per day. Remove & discard patch within 12 hours or as directed by . 30 patch 1 025 Active Diclofenac Sodium (Voltaren) 1 % gelIndications: Chronic right-sided low back pain with right-sided sciatica Apply 8 g topically if needed in the morning and at bedtime (apply on affected area as needed). 350 g 1 025 Active Blood Glucose Monitoring Suppl (FreeStyle Portis Lite) w/Device kitIndications: Type 2 diabetes mellitus with hyperglycemia, with long-term current use of insulin ([facility]) Use to test blood sugar 1 times daily 1 kit 025 Active Diclofenac Sodium (Voltaren) 1 % gelIndications: Chronic right-sided low back pain with right-sided sciatica Apply 8 g topically if needed in the morning and at bedtime (apply on affected area as needed). 350 g 1 023 2024 Discontinued(R eorder (will not trigger notification to Pharmacy)) dulaglutide (Trulicity) 1.5 MG/0.5ML solution pen-injectorInd ications:Type 2 diabetes mellitus with other specified complication, unspecified whether halfway insulin use ([facility]) INJECT ONE PEN (=1.5MG) SUBCUTANEOUSLY ONCE A WEEK DIRECTED 2 mL 024 2024 Discontinued dulaglutide (Trulicity) 1.5 MG/0.5ML solution pen-injectorInd ications:Type 2 diabetes mellitus with hyperglycemia, with long-term current use of insulin ([facility]) Inject 1.5 mg under the skin 1 (one) time per week. 4 each 1 024 2024 Discontinued semaglutide (Ozempic) 2 MG/1.5ML solution pen-injectorInd ications:Type 2 diabetes mellitus with hyperglycemia, with long-term current use of insulin ([facility]) Inject 0.5 mg under the skin 1 (one) time per week. 1 each 024 2024 Discontinued repaglinide (Prandin) 2 MG tabletIndicatio ns:Type 2 diabetes mellitus with hyperglycemia, with long-term current use of insulin ([facility]) TAKE 2 TABLETS BY MOUTH THREE TIMES DAILY 15 TO 30 MINUTES BEFORE MEALS 540 tablet 1 024 2024 Discontinued Active Problems Problem Noted Date Diagnosed Date History of recurrent UTIs 05/01/2025 Type 2 diabetes mellitus wit h hyperglycemia, with long-term current use of insulin 02/26/2024 Assessment & Plan (05/22/2024 12:21 PM EDT): Diabetes is: almost at goal - Lab Results Component Value Date HGBA1C 7.4 (A) 05/22/2024 HGBA1C 8.1 (A) 02/26/2024 HGBA1C 6.6 (A) 05/11/2023 - Lab Results Component Value Date MICROALBUR 0.8 04/06/2022 CREATININE 0.71 02/27/2024 -Changes: I will start patient on ozempic I will discontinue trulitity (shortage) c/w rest of medications - Diabetic eye exam:up to date - Diabetic foot exam:up to date - Continue lifestyle modifications - Continue current medications - Follow up: 3 months Assessment & Plan (02/26/2024 1:47 PM EDT): Diabetes is: not controlled - Lab Results Component Value Date HGBA1C 8.1 (A) 02/26/2024 HGBA1C 6.6 (A) 05/11/2023 HGBA1C 7.8 (A) 03/14/2023 - Lab Results Component Value Date MICROALBUR 0.8 04/06/2022 CREATININE 0.67 01/29/2023 -Changes: counseling about diabetic diet done today, coal passer referral - Diabetic eye exam:up to date - Diabetic foot exam:podiatry referral done - Continue lifestyle modifications - Continue current medications - Follow up: 3 months 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 White straight-identified cis-female with previous documented hx of Depression and Anxiety No previous hx of MH services who presents for Depression and Anxiety. Lives alone, has support from sister. Hx of trauma in adulthood. During IBH Consult Diana presenting with depressed mood, changes in sleep difficulty falling asleep, change in appetite or weight reduce appetite, trouble concentrating, thoughts of worthlessness or guilt, fatigue/loss of energy and excessive worry/anxiety, difficulty controlling worry, restless/keyed up/On edge, easily fatigued, difficulty concentrating/Mind going blank , irritability, muscle tension, and sleep disturbance difficulty falling asleep; for a period of 6-12 mo, for all symptoms in the context of receiving a traumatic news about daughters, concern about daughter behaviors, stress relationship with family. PLAN: New/Additional Services needed Off-site services for Behavioral Health Integration Plan External OP therapy referral Patient Self Plan Patient to utilize skills provided in intervention , Patient to reach out to [facility] team as needed, and Patient to engage in OP therapy Assessment & Plan (02/26/2024 1:55 PM EDT): [facility] is called today, counseling done today ill consider to start medication on next appointment Pain of left heel 02/26/2024 Assessment & Plan (02/26/2024 1:42 PM EDT): Podiatry referral Red eyes 02/26/2024 Constipation 03/14/2023 Assessment & Plan (03/14/2023 1:08 PM EDT): Increase fiber and water intake referral to GI also done Elevated blood pressure reading 03/14/2023 Heartburn 03/14/2023 Assessment & Plan (03/14/2023 1:08 PM EDT): I advise patient to avoid NSAIDs, spicy and acid food, I advise to eat at the same time every day, I advise to elevate the head of the bed and take medications as prescribe C/w famotidine 20mg BID GI referral UTI symptoms 03/14/2023 Assessment & Plan (02/26/2024 1:42 PM EDT): UA done at this visit is positive for nitrates I will send sample to culture Macrobid 100mg BID for 7 days Vaginal discharge 03/14/2023 Hypertensive disorder 03/14/2023 Chronic right-sided low back pain with right-jeannine ed sciatica 03/14/2023 Essential hypertension 01/29/2023 Assessment & Plan (05/22/2024 12:19 PM EDT): I instructed patient to monitor her BP at home I advise low Na diet and weight reduction C/w same medication Next appointment come with BP log Assessment & Plan (02/26/2024 1:41 PM EDT): - Aerobic exercise to reduce BP. Initial goal of 30 min walk 3-5x/week. Increase as tolerated. - low-sodium diet (goal: <2g/day) and heart healthy diet such as DASH to reduce BP and prevent ASCVD. - Home BP monitoring 1-2 x day with goal of <140/90. - Seek immediate medical attention for chest pain, palpitations, SOB, syncope, or sudden changes in mental status. - Do not change or discontinue current prescriptions without first consulting health care provider Assessment & Plan (05/11/2023 11:27 AM EDT): - Aerobic exercise to reduce BP. Initial goal of 30 min walk 3-5x/week. Increase as tolerated. - low-sodium diet (goal: <2g/day) and heart healthy diet such as DASH to reduce BP and prevent ASCVD. - Home BP monitoring 1-2 x day with goal of <140/90. - Seek immediate medical attention for chest pain, palpitations, SOB, syncope, or sudden changes in mental status. - Do not change or discontinue current prescriptions without first consulting health care provider Assessment & Plan (03/14/2023 1:07 PM EDT): - Aerobic exercise to reduce BP. Initial goal of 30 min walk 3-5x/week. Increase as tolerated. - low-sodium diet (goal: <2g/day) and heart healthy diet such as DASH to reduce BP and prevent ASCVD. - Home BP monitoring 1-2 x day with goal of <140/90. - Seek immediate medical attention for chest pain, palpitations, SOB, syncope, or sudden changes in mental status. - Do not change or discontinue current prescriptions without first consulting health care provider Assessment & Plan (01/29/2023 5:12 PM EDT): BP not at goal - continue Losartan as prescribed -work on lifestyle modifications - follow-up with PCP as scheduled Mild intermittent asthma 01/29/2023 Memory problem 01/29/2023 Assessment & Plan (01/29/2023 5:12 PM EDT): Will order lab -follow-up with PCP as scheduled Grieving 01/29/2023 Assessment & Plan (01/29/2023 5:39 PM EDT): Seen by [facility] Provider -Patient requested medication so she can manage her anxiety this week until the Services for her Mother -Agreed to prescribe short-supply of medication hydroxyzine -Advised to get connected with [facility] and possibly with psychiatrist if she chooses to take a medication for long-term. -follow-up with PCP Anxiety 01/29/2023 Assessment & Plan (05/22/2024 12:21 PM EDT): Counseling done Hydroxyzine PRN Resolved Problems Problem Noted Date Diagnosed Date Resolved Date Type 2 diabetes mellitus without complication 01/30/20 23 02/26/2024 Assessment & Plan (05/11/2023 11:27 AM EDT): - Lab Results Component Value Date HGBA1C 6.6 (A) 05/11/2023 HGBA1C 7.8 (A) 03/14/2023 HGBA1C 9.1 (A) 01/29/2023 - Lab Results Component Value Date MICROALBUR 0.8 04/06/2022 CREATININE 0.67 01/29/2023 - - Diabetic eye exam:up to date - Continue lifestyle modifications - Continue current medications Assessment & Plan (03/14/2023 1:09 PM EDT): - Lab Results Component Value Date HGBA1C 7.8 (A) 03/14/2023 HGBA1C 9.1 (A) 01/29/2023 HGBA1C 8.2 (H) 08/30/2021 - Lab Results Component Value Date MICROALBUR 0.8 04/06/2022 CREATININE 0.67 01/29/2023 - Diabetic eye exam: up to date - Diabetic foot exam: pending - Continue lifestyle modifications - Continue current medications Assessment & Plan (01/29/2023 5:10 PM EDT): A1c 9.5% - continue current medications as prescribed - will send testing strips as requested Encounters Date Type Department Care Team Description 05/01/2025 11:00 AM EDT Office Visit [facility] [address] [place] [address] Coleen Bright MD Essential hypertension (Primary Dx); Type 2 diabetes mellitus with hyperglycemia, with long-term current use of insulin ([facility]); Chronic right-sided low back pain with right-sided sciatica; UTI symptoms; History of recurrent UTIs 05/01/2025 Travel 04/30/2025 Telephone [facility] [address] [place] [address] Coleen Bright MD Chart Prep 04/20/2025 Refill [facility] [address] [place] [phone] Coleen Bright MD Type 2 diabetes mellitus with hyperglycemia, with long-term current use of insulin (CMS/HCC) 03/24/2025 5:40 PM EDT Office Visit [facility] [address] [place] [address] Niko Nicholson MD Strain of left trapezius muscle, initial encounter (Primary Dx) 03/20/2025 Refill [facility] [address] [place] [address] Coleen Bright MD Type 2 diabetes mellitus with hyperglycemia, unspecified whether extermination inspector insulin use (CMS/HCC) 03/11/2025 Refill [facility] [address] [place] [address] Coleen Bright MD Type 2 diabetes mellitus with hyperglycemia, unspecified whether halfway insulin use (CMS/HCC); Primary hypertension; Heartburn 02/20/2025 Orders Only [facility] [address] [place] [address] Kathrine Pace MD 01/30/2025 Refill [facility] [address] [place] [address] Coleen Bright MD Type 2 diabetes mellitus with other specified complication, with long-term current use of insulin ([facility]) from Last 3 Months Immunizations Immunization Administration Dates Next Due Hep B, adult 03/14/2023,02/16/2023 Influenza injectable quadrivalent preservative f ree 02/16/2023,08/29/2021 Influenza, IIV3, injectable 09/12/2022, Meningococcal Polysaccharide A,C,Y,W-135 TT Conj ugate 03/22/2023 Pfizer Covid-19 Vaccine 12+ Bivalent 05/02/2023 Pneumococcal Conjugate PCV 20 03/14/2023 Pneumococcal Polysaccharide PPSV23 03/31/2021 RSV Bivalent 03/03/2025 Tdap 02/27/2023 Zoster, Recombinant 03/31/2021,12/17/2019 Social History Tobacco Use Types Packs/Day Years Used Date Smoking Tobacco: Never Passive Smoke Exposure: Never Smokeless Tobacco: Never Tobacco Cessation:Counseling Given: Not Answered Depression Answer Date Recorded Patient Health Questionnaire-9 Score 0 05/01/2025 Patient Health Questionnaire-9 Score 0 05/01/2025 Last PHQ-9: Questionnaire Data Not on file 0 05/01/2025 Housing Stability Answer Date Recorded What is your housing situation today? I have valentino forrester 05/22/[address] you li ve. Do you have problems with any of the following? None of the above 05/22/2024 Food Insecurity Answer Date Recorded Within the past 12 months, y ou worried that your food would run out before you got money to buy more: Never True 05/22/2024 Within the past 12 months,th e food you bought just didn't last and you didn't have enough money to get more: Never True 10/2023 Transportation Answer Date Recorded In the past 12 months, has l ack of transportation kept you from medical appts, meetings, work or from getting things needed for daily living? No 05/22/2024 Utilities Answer Date Recorded In the past 12 months, has t he electric, gas, oil or water company threatened to shut off services in your home? No 05/22/2024 Depression Answer Date Recorded Patient Health Questionnaire-2 Score 0 05/01/2025 Internet Access Answer Date Recorded Internet Access Q1 No 06/21/2024 Internet Access Q2 I do not want or need it 05/24 Comments Unknown Sex and Gender Information Value Date Recorded Sex Assigned at Female 08/21/2022 10:36 AM EDT Legal Sex Female 10:36 AM EDT Gender Identity Female 08/21/2022 10:36 AM EDT Sexual Orientation Straight 08/21/2022 10 :36 AM EDT Last Filed Vital Signs Vital Sign Reading Time Taken Comments Blood Pressure 130/70 05/01/2025 11:13 AM EDT Pulse 61 05/01/2025 11:13 AM EDT Temperature 36.1 C (96.9 F) 05/01/2025 11:13 AM EDT Respiratory Rate 16 05/01/2025 11:13 AM EDT Oxygen Saturation 99% 05/01/2025 11:13 AM EDT Inhaled Oxygen Concentration - - Weight 70.3 kg (155 lb) 05/01/2025 11:13 AM EDT Height 162.6 cm (5' 4 ) 05/01/2025 11:13 AM EDT Body Mass Index 26.61 05/01/2025 11:13 AM EDT Plan of Treatment Health Maintenance Due Date Last Done Comments CT Colonography 1955 FIT DNA/Cologuard 1955 FIT 1955 FOBT 1955 Sigmoidoscopy 1955 Diabetes: Foot Exam 1966 Eye Exam 1966 Diabetes: Urine Protein Screening 04/06/2023 04/06/2022, 08/30/2021, 03/09/2021 Hepatitis B Vaccines (3 of 3 - 19+ 3-dose series) 08/18/2023 03/14/2023, 02/16/2023 Dental Oral Exam 09/08/2023 03/07/2023 Dental Prophylaxis 11/15/2023 05/14/2023 Dental X-Ray: Bitewings 03/08/2024 03/07/2023 COVID-19 Vaccine ( season) 2024 05/02/2023, 09/10/2021, 03/10/2021 Lipid Panel 02/26/2025 02/27/2024, 01/20, 04/06/2022, Additional history exists Mammogram 05/05/2025 05/05/2024, 04/21, 04/30/2023, Additional history exists Alcohol/Substance Use Screening 05/22/2025 05/22/2024 SDOH Screening 05/22/2025 05/22/2024 Tobacco Screening 05/22/2025 05/22/2024 Influenza Vaccine (#1) 2025 3, 09/12/2022, 08/29/2021, Additional history exists Diabetes: Hemoglobin A1C 11/01/2025 025, 05/22/2024, 02/26/2024, Additional history exists Dental X-Ray: Full Mouth 03/08/2026 03/07/2023 Depression Screening 05/01/2026 05/01/2025, 05/01/20 25 Colonoscopy 09/12/2031 09/12/2021 Colorectal Cancer Screening 09/12/2031 DTaP/Tdap/Td Vaccines (2 - Td or Tdap) 02/27/2033 02/27/2023 Zoster Vaccines Completed 03/31/2021, 12/17/2019 Hepatitis C Screening Completed 01/29/2023 Pneumococcal Vaccine: 50+ Years Completed 03/14/2023, 03/31/2021 Meningococcal Vaccine Aged Out 03/22/2023 No srinivas costa eligible based on patient's age to complete this topic RSV Patients and Patients Aged 60 years or older Completed 03/03/2025 HIB Vaccines Aged Out No longer eligi ble based on patient's age to complete this topic HPV Vaccines Aged Out No longer eligi ble based on patient's age to complete this topic Hepatitis A Vaccines Aged Out No long er eligible based on patient's age to complete this topic IPV Vaccines Aged Out No longer eligi ble based on patient's age to complete this topic Meningococcal B Vaccine Aged Out No l onger eligible based on patient's age to complete this topic RSV under 20 months Aged Out No longe r eligible based on patient's age to complete this topic Rotavirus Vaccines Aged Out No longer eligible based on patient's age to complete this topic Procedures Procedure Name Priority Date/Time Associated Diagnosis Comments POCT GLYCOSYLATED HEMOGLOBIN (HGB A1C) Routine 05/01/2025 11:15 AM EDT Type 2 diabetes mellitus with hyperglycemia, with long-term current use of insulin ([facility]) POCT GLUCOSE Routine 05/01/2025 11:12 AM EDT Type 2 diabetes mellitus with hyperglycemia, with long-term current use of insulin ([facility]) BI MAMMOGRAM SCREENING TOMOSYNTHESIS BILATERAL Routine 05/05/2024 10:20 AM EDT LIPID PANEL, STANDARD Routine 02/27/2024 8:54 AM EDT Essential hypertension PROPHYLAXIS - ADULT Routine 05/14/2023 1 0:00 AM EDT INTRAORAL - COMPLETE SERIES OF RADIOGRAPHIC IMAGES Routine 03/07/2023 2:00 PM EDT Dental caries Periodontal disease Teeth missing Dental plaque COMPREHENSIVE ORAL EVALUATION - NEW OR ESTABLISHED PATIENT Routine 03/07/2023 2:00 PM EDT Dental caries Periodontal disease Teeth missing Dental plaque HEPATITIS C AB W/REFL TO HCV RNA, QN, PCR Routine 01/29/2023 4:41 PM EDT Memory problem ALBUMIN, RANDOM URINE W/CREATININE Routine 04/06/2022 8:54 AM EDT HM COLONOSCOPY Routine 09/12/2021 9:13 PM EST from Last 3 Months or Most Recently Relevant to Health Maintenance Results * (ABNORMAL) POCT glycosylated hemoglobin (Hgb A1c) (05/01/2025 11:15 AM EDT) Hemoglobin A1C 6.6(A) 4.0 - 5.7 % QC Media Lot # [id number] Lot# Expiration Date ,[id number] Blood Capillary blood specimen / Unknown 05/01/2025 11:15 AM EDT Coleen Parker MD POINT OF CARE TEST EN TER/EDIT ORDERABLES Final Result * POCT glucose manually resulted (05/01/2025 11:12 AM EDT) Glucose Blood, POC 121 60 - 200 mg/dL Blood Capillary blood specimen / Unknown 05/01/2025 11:12 AM EDT Coleen Parker MD POINT OF CARE TEST EN TER/EDIT ORDERABLES Final Result * BI Mammogram Screening Tomosynthesis Bilateral (05/05/2024 10:20 AM EDT) Anatomical Region Laterality Modality Breast Bilateral Mammography 05/05/2024 10:2 0 AM EDT Narrative 05/28/2024 9:32 AM EDT [facility] [place] [address] Mammography Report Signed Patient: Diana Mai MR#: [id number] : 1955 Acct:[id number] Age/Sex: 68 / F ADM Date: 05/05/24 Loc: HO.MAMMO Attending Dr: Coleen Parker MD Ordering Physician: Coleen Bright MD Results: 1Negative Date of Service: 05/05/24 Follow Up: 1 Year From Orig ina Mammogram Procedure(s): MM tomosynthesis screening BI Accession Number(s): [id number] cc: Coleen Bright MD EXAMINATION: MM SCREENING DIGITAL BREAST TOMOSYNTHESIS, BILATERAL CLINICAL INFORMATION: Screening. Asymptomatic. COMPARISON: Mammography: This study is compared with prior exams dating back to 2020. TECHNIQUE: Digital breast tomosynthesis is performed in both the craniocaudal and mediolateral oblique views along with computer-aided detection (CAD). Synthesized 2D images are generated from the tomosynthesis. FINDINGS: There are scattered areas of fibroglandular density (ACR BI-RADS breast composition Category b). There are no significant masses, abnormal calcifications, or other abnormalities. MM/MM tomosynthesis screening BI IMPRESSION: No mammographic evidence of malignancy. ASSESSMENT: BI-RADS BI-RADS 1 - Negative RECOMMENDATION: Routine annual mammography screening. 1 year F/U This examination should not preclude the clinical evaluation of a suspicious palpable abnormality. This patient's information was entered into a reminder system with a target due date for their next mammogram. Dictated By: Gale Schmidt MD Signed By: <Electronically signed by Gale Schmidt MD in OV> 05/28/24 0928 DD/ 1020 TD/TT: Chief Executive: Procedure Note Donotuseinterpreter, Image - [facility]28/[facility] [address] [place] [address] Mammography Report Signed Patient: Diana MaiMR#: [id number] : [id number]:[id number] Age/Sex: 68 / FADM Date: 05/05/24 Loc: [facility] Attending Dr: Coleen Parker MD Ordering Physician: Coleen Bright MDResults: 1Negative Date of Service: 05/05/24Follow Up: 1 Year From Orig inal Mammogram Procedure(s): MM tomosynthesis screening BI Accession Number(s): [id number] cc: Coleen Bright MD EXAMINATION: MM SCREENING DIGITAL BREAST TOMOSYNTHESIS, BILATERAL CLINICAL INFORMATION: Screening. Asymptomatic. COMPARISON: Mammography: This study is compared with prior exams dating back to 2020. TECHNIQUE: Digital breast tomosynthesis is performed in both the craniocaudal and mediolateral oblique views along with computer-aided detection (CAD). Synthesized 2D images are generated from the tomosynthesis. FINDINGS: There are scattered areas of fibroglandular density (ACR BI-RADS breast composition Category b). There are no significant masses, abnormal calcifications, or other abnormalities. MM/MM tomosynthesis screening BI IMPRESSION: No mammographic evidence of malignancy. ASSESSMENT: BI-RADS BI-RADS 1 - Negative RECOMMENDATION: Routine annual mammography screening. 1 year F/U This examination should not preclude the clinical evaluation of a suspicious palpable abnormality. This patient's information was entered into a reminder system with a target due date for their next mammogram. Dictated By: Gale Schmidt MD Signed By: <Electronically signed by Gale Schmidt MD in OV> 05/28/24 0928 DD/ 1020 TD/TT: Chief Executive: us Coleen Parker MD IMG BI PROCEDURES Eric ольга Result - Final * Lipid Panel, Standard (02/27/2024 8:54 AM EDT) Triglycerides 118 <150 mg/dL [facility] Comment:Desirable Triglyceri de: less than 150 mg/dLBorderline High Triglyceride 150-199 mg/dLHigh Triglyceride: 200-499 mg/dLVery High Triglyceride: greater than or equal to 5OO mg/dL Cholesterol 171 <200 mg/dL [facility] Comment:Desirable Cholestero l: less than 200 mg/dLBorderline High Cholesterol: 200-239 mg/dLHigh Cholesterol: greater than 239 mg/dL LDL Cholesterol Calculated 92 <100 mg/dL [facility] Comment:Desirable LDL: less than 100 mg/dLNear Optimal/Above Optimal LDL: 110- 129 mg/dLBorderline High LDL: 130-159 mg/dLHigh LDL: 160-189 mg/dLVery High LDL: greater than or equal to 190 mg/dL HDL Cholesterol 56 >40 mg/dL [facility] Comment:Desirable HDL: great er than 40 mg/dL Note: This HDL assay may give artificially low results in patients with liver disease. Blood Venous blood specimen / Unknown 02/27/2024 8:54 AM EDT 02/27/2024 11:25 AM EDT us Coleen Parker MD LAB BLOOD ORDERABLES Final Result [facility] [address] [place] [address] [phone] * Hepatitis C Antibody with Reflex to HCV, RNA, Quantitative, Real-Time PCR (01/29/2023 4:41 PM EDT) Hepatitis C Antibody NON-REACT JESSICA NON-REACT JESSICA [facility] [place] [facility] Index 0.04 <1.00 [facility] Comment: HCV antibody was non-reactive. There is no laboratory evidence of HCV infection. In most cases, no further action is required. However, if recent HCV exposure is suspected, a test for HCV RNA (test code 38306) is suggested. For additional information please refer to http://education.Go800/faq/MHA65t9 (This link is being provided for informational/ educational purposes only.) Blood Venous blood specimen / Unknown 01/29/2023 4:41 PM EDT 01/29/2023 4:42 PM EDT Narrative [facility] - 01/30/2023 4:19 PM EDT FASTING:UNKNOWN FASTING: UNKNOWN us Shira Wright MD LAB BLOOD ORDERABLES Final Resul t Performing Organization Address City/[facility]/ZIP Co de Phone Number [facility] [address], [place] [address] [facility] [address] [place] [address] * ALBUMIN, RANDOM URINE W/CREATININE (04/06/2022 8:54 AM EDT) Microalbumin Urine 0.8 See Note: mg/dL [facility] Comment: Reference Range: Reference Range Not established Microalb/Creat Ratio 5 <30 mcg/mg creat [facility] Comment: The ADA defines abnormalities in albumin excretion as follows: Albuminuria Category Result (mcg/mg creatinine) Normal to Mildly increased <30 Moderately increased 30-299 Severely increased > OR = 300 The ADA recommends that at least two of three specimens collected within a 3-6 month period be abnormal before considering a patient to be within a diagnostic category. Creatinine, Urine 149 20 - 275 mg/dL [facility] 04/06/2022 8:54 AM EDT us Coleen Parker MD LAB URINE ORDERABLES Final Result [facility] [address] [place] [address], * Hm Colonoscopy (09/12/2021 9:13 PM EST) Colonoscopy Normal Normal Narrative Nuha Cantrell - 09/12/2021 9:13 PM EST Recommended 10 year follow up ( see legacy note on 09/12/2021) us Historical Provider HEALTH MAINTENANCE Edited Result - Final from Last 3 Months or Most Recently Relevant to Health Maintenance Insurance 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
[2025-05-01 14:07] LABS: MANUAL DIFF FLAG NO
[2025-05-01 14:12] LABS: Hematocrit 40.8 % (37.0-47.0); Hemoglobin 13.7 g/dl (12.0-16.0); Imm Gran Abs Auto 0.02 X10*3/uL (0.00-0.03); Imm Gran Pct Auto 0.4 % (0.0-0.4); Lymphocytes Absolute Auto 1.4 X10*3/uL (1.2-4.9); Mean Corpuscular HGB Conc 33.6 g/dl (31.0-35.0); Mean Corpuscular Hemoglobin 30.0 pg (27.0-33.0); Mean Corpuscular Volume 89.5 fL (80.0-98.0); NRBC Abs Auto 0.000 X10*3/uL (0.0-0.012); NRBC Pct Auto 0.0 /100WBC (0.0-0.2); Platelet Count 221 X10*3/uL (160-400); Red Blood Count 4.56 X10*6/uL (4.20-5.50); White Blood Count 5.3 X10*3/uL (4.8-10.8)
[2025-05-01 14:39] LABS: Alanine Aminotransferase 20 U/L (0-31); Albumin Level 4.4 g/dL (3.5-5.0); Alkaline Phosphatase 70 U/L (39-117); Anion Gap 11 (12-20); Aspartate Amino Transferase 25 U/L (5-31); Blood Urea Nitrogen 22 mg/dL (9-16); Calcium 9.1 mg/dL (8.4-10.2); Carbon Dioxide 28 mmol/L (22-29); Chloride 104 mmol/L (96-108); Cholesterol 171 mg/dL (<200); Estimated Glomerular Filt Rate > 60; HDL Cholesterol 60 mg/dL (>40); Potassium 3.9 mmol/L (3.3-5.1); Sodium 139 mmol/L (135-145); Total Protein 7.4 g/dL (6.5-8.0); Triglycerides 77 mg/dL (<150)
[2025-05-01 17:50] LABS: Appearance Urine Cloudy; Glucose Urine UA 500 mg/dL (Negative); PH 6.0 (5.0-9.0); Specific Gravity - Urine 1.020 (1.005-1.025); UMIC TRIGGER UACC YES
[2025-05-01 17:54] LABS: UACC Culture Trigger YES
[2025-05-01 18:03] LABS: Microalbum/Creatinine Ratio Ur 6.4 ug/mg cr (<30)
[2025-05-02 09:09] LABS: HIV Num 1 0.05 S/CO (0.00-0.99); ~HepC Num1 0.51 S/CO (0.00-0.79); ~Hepatitis C Antibody Nonreactive (Nonreactive)
== END 2025-05-01 11:55 | disposition home or self-care (01) ==
LOC: HO.HHCL 11:54
PROVIDERS: PCP Internal Medicine; Visit Provider Internal Medicine
DX: E11.65 Type 2 diabetes mellitus with hyperglycemia (principal); Z79.4 Long term (current) use of insulin; R39.9 Unspecified symptoms and signs involving the genitourinary system
CPT/HCPCS: 36415; 80053; 80061; 81001; 82043; 82306; 82570; 84443; 85025; 86803; 87086; 87088; 87186; 87389

== ENCOUNTER 2025-05-11 10:01 | Outpatient (REF) | payer OTHER, SELFPAY ==
--- OUTSIDE RECORDS SUMMARY | 2024-08-14 10:15 | XMS_ITS ---
Author Organization [facility] Address [address] [place] [phone] Care Team Providers Care Lien Searcher Name Role Phone Coleen Alvarez M.D. Primary Care Provider Freddy Messina Jr, Rhett Martin REASON FOR VISIT Patient presents today for GERD Encounters Encounter Location Date Provider Diagnosis [facility] [address] [facility] [address] [place] [phone] 08/14/2024 Rhett Messina Jr Plan Of Treatment Next Appt Details Provider Name:Rhett jasmine Jr, 05/21/2025 02:35:00 PM, [address] [place] [address], [address], [place], [phone], Progress Notes * SHAJI BRANDTDOB:0 1955 (69 yo F)Acc No.[id number]:08/14/2024 Progress Notes Patient: SHAJI KO Provider: Siobhan Messina MD :1955 A ge:68 Y S ex:Female Date:08/14/2024 Address:[address] [place] [address] Pcp:Coleen Alvarez M.D. Subjective: * Chief Complaints: [...] 1 Generated for Mary parry/Traci/Beatriz on: 0 05/11/2025 10:49 AM EDT
--- OUTSIDE RECORDS SUMMARY | 2025-05-11 10:49 | XMS_ITS | Clinical Summary ---
Author Organization [employer] Address [address] [facility] [address] [place] [address] Care Team Providers Care Spray Gun Sizer Name Role Phone Coleen Bright MD Primary Care Provide r Allergies No known active allergies Medications * This document contains information received from the source organization and may not represent a complete record from that organization. Blood Glucose Monitoring Suppl (FreeStyle Lite) deviceIndicatio ns:Type 2 diabetes mellitus without complication, without long-term current use of insulin ([facility]) Inject 1 each under the skin [...] 023 Active Blood Glucose Monitoring Suppl (FreeStyle Hanahan Lite) w/Device kitIndications: Type 2 diabetes mellitus with hyperglycemia, with long-term current use of insulin ([facility]) Use to test blood sugar 2 [...] hyperglycemia, with long-term current use of insulin ([facility]) 1 each 2 times daily. 1 kit 024 Active dextran 70-hypromellose (artificial tears) 0.1-0.3 % ophthalmic solutionIndicat ions:Red eyes Administer 1 drop into both eyes if needed in the morning, at noon, and at bedtime for dry eyes. 30 mL 1 024 2024 Active OneTouch Delica Lancets 33G miscIndications :Type 2 diabetes mellitus with hyperglycemia, with long-term current use of insulin ([facility]) 1 each 3 times daily. TEST BLOOD SUGAR TWICE A DAY 100 each 11 Active TRUEplus Lancets 33G miscIndications :Type 2 diabetes mellitus with hyperglycemia, unspecified whether senior care insulin use ([facility]) Use to check blood sugar 3x daily 300 each 024 Active hydrOXYzine pamoate (Vistaril) 25 MG capsuleIndicati ons:Anxiety Take 1 tablet by mouth up to twice a day as needed for anxiety and difficulty sleeping. 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 ([facility]) USE FOR inyectar INSULIN DAILY DIRECTED 100 each 3 Active glucose blood test stripIndication s:Type 2 diabetes mellitus without complication, with long-term current use of insulin ([facility]) Use as instructed kip tello 100 [...] complication, with long-term current use of insulin ([facility]) INJECT 40 UNITS SUBCUTANEOUSLY EVERY DAY IN THE EVENING DIRECTED 15 mL 3 025 Active pioglitazone (Actos) 15 MG tabletIndicatio ns:Type 2 diabetes mellitus with hyperglycemia, unspecified whether senior care insulin use ([facility]) TAKE 1 TABLET BY MOUTH EVERY [...] 2 diabetes mellitus with hyperglycemia, unspecified whether senior care insulin use ([facility]) take 1 tablet by oral route [...] hyperglycemia, with long-term current use of insulin ([facility]) TAKE 2 TABLETS BY MOUTH THREE TIMES DAILY 15 TO 30 MINUTES BEFORE MEALS 540 tablet 1 025 Active semaglutide (Ozempic, 1 MG/DOSE,) 4 MG/3ML solution pen-injectorInd ications:Type 2 diabetes mellitus with hyperglycemia, with long-term current use of insulin ([facility]) Inject 1 mg under the skin [...] 1 025 Active Blood Glucose Monitoring Suppl (School YourselfStyle Hanahan Lite) w/Device kitIndications: Type 2 diabetes mellitus with hyperglycemia, with long-term current use of insulin ([facility]) Use to test blood sugar 1 times daily 1 kit Active nitrofurantoin, macrocrystal-mo nohydrate, (Macrobid) 100 MG capsuleIndicati ons:UTI symptoms Take 1 capsule (100 mg) by mouth 2 times daily for 7 days. 14 capsule 025 2024 Active Diclofenac Sodium (Voltaren) 1 % gelIndications: Chronic right-sided low back pain with right-sided sciatica Apply 8 g topically if needed in the morning and at bedtime (apply on affected area as needed). 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 4 each 024 2024 Discontinued semaglutide (Ozempic) 2 MG/1.5ML solution pen-injectorInd ications:Type 2 diabetes mellitus with hyperglycemia, with long-term current use of insulin ([facility]) Inject 0.5 mg under the skin 1 (one) time per week. 1 each 12 024 2024 Discontinued repaglinide (Prandin) 2 MG tabletIndicatio ns:Type 2 diabetes mellitus with hyperglycemia, with long-term current use of insulin ([facility]) TAKE 2 TABLETS BY MOUTH THREE TIMES DAILY 15 TO 30 MINUTES BEFORE MEALS 540 tablet 1 024 2024 Discontinued ciprofloxacin (Cipro) 500 MG tabletIndicatio ns:Urinary tract infection without hematuria, site unspecified Take 1 tablet (500 mg) by mouth 2 times daily for 7 days. 14 tablet 025 2024 Discontinued Active Problems Problem Noted Date Diagnosed Date History of recurrent UTIs 05/01/2025 Type 2 diabetes mellitus wit h hyperglycemia, with long-term current use of insulin 02/26/2024 Assessment & Plan (05/01/2025 4:50 PM EDT): Diabetes is: almost at goal - Lab Results Component Value Date HGBA1C 6.6 (A) 05/01/2025 HGBA1C 7.4 (A) 05/22/2024 HGBA1C 8.1 (A) 02/26/2024 - Lab Results Component Value Date MICROALBUR 0.8 04/06/2022 CREATININE 0.72 05/01/2025 -Changes: I increase her Ozempic to 1 mg weekly - Diabetic eye exam: Pending - Diabetic foot exam: Pending - Continue lifestyle modifications - Continue current medications - Follow up: 3 months Assessment & Plan (05/22/2024 12:21 PM EDT): [...] -Changes: counseling about diabetic diet done today, route supervisor referral - Diabetic eye exam:up to date - Diabetic foot exam:podiatry referral done - Continue lifestyle modifications - Continue current medications - Follow up: 3 months 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 White straight-identified cis-female with previous documented hx of Depression and Anxiety No previous hx of services who presents for Depression and Anxiety. [...] intervention , Patient to reach out to [facility] team as needed, and Patient to engage [...] 03/14/2023 Essential hypertension 01/29/2023 Assessment & Plan (05/01/2025 4:49 PM EDT): I advised: - Aerobic exercise to reduce BP. Initial [...] consulting health care provider Assessment & Plan (05/22/2024 12:19 PM EDT): [...] Plan (01/29/2023 5:39 PM EDT): Seen by [facility] Provider -Patient requested medication so she can manage her anxiety this week until the Services for her Mother -Agreed to prescribe short-supply of medication hydroxyzine -Advised to get connected with [facility] and possibly with psychiatrist if she chooses [...] Encounters Date Type Department Care Team Description 05/06/2025 Telephone [facility] [address] [place] [phone] Coleen Bright MD Telephone Call 05/04/2025 Orders Only [facility] [address] [place] [address] Coleen Bright MD 05/04/2025 Orders Only [facility] [address] [place] [phone] Coleen Bright MD UTI symptoms (Primary Dx) 05/04/2025 Orders Only [facility] [address] [place] [phone] Coleen Bright MD Urinary tract infection without hematuria, site unspecified (Primary Dx) 05/04/2025 Telephone [facility] [address] [place] [address] Coleen Bright MD Lab Results (Pt walking requesting lab results ) 05/01/2025 11:00 AM EDT Office Visit [address] [phone] Coleen Bright MD Essential hypertension (Primary Dx); Type 2 diabetes mellitus with hyperglycemia, with long-term current use of insulin ([facility]); Chronic right-sided low back pain with right-sided sciatica; UTI symptoms; History of recurrent UTIs 05/01/2025 Orders Only [facility] [place] [address] Coleen Bright MD 05/01/2025 Travel 04/30/[address] [address] Coleen Bright MD Chart Prep 04/20/2025 Refill [facility] [address] [place] [phone] Coleen Bright MD Type 2 diabetes mellitus with hyperglycemia, with long-term current use of insulin ([facility]) 03/24/2025 5:40 PM EDT Office Visit [facility] [address] Niko Nicholson MD Strain of left trapezius muscle, initial encounter (Primary Dx) 03/20/2025 Refill [facility] [address] [place] [phone] Coleen Bright MD Type 2 diabetes mellitus with hyperglycemia, 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 I have valentino mitzy 05/22/[address] you li [...] Diabetes: Foot Exam 1965 Eye Exam 1965 Hepatitis B Vaccines (3 of 3 - 19+ 3-dose series) 08/18/2023 03/14/2023, 02/16/2023 Dental Oral Exam 09/08/2023 03/07/2023 Dental Prophylaxis 11/15/2023 05/14/2023 Dental X-Ray: Bitewings 03/08/2024 03/07/2023 COVID-19 Vaccine ( season) 2024 05/02/2023, 09/10/2021, 03/10/2021 Mammogram 05/05/2025 05/05/2024, 04/21, 04/30/2023, Additional history exists Alcohol/Substance Use Screening 05/22/2025 05/22/2024 SDOH Screening 05/22/2025 05/22/2024 Tobacco Screening 05/22/2025 05/22/2024 Influenza Vaccine (#1) 2025 , 09/12/2022, 08/29/2021, Additional history exists Diabetes: Hemoglobin A1C 11/01/2025 025, 05/22/2024, 02/26/2024, Additional history exists Dental X-Ray: Full Mouth 03/08/2026 03/07/2023 Depression Screening 05/01/2026 05/01/2025, 05/01/20 Diabetes: Urine Protein Screening 05/01/2026 05/01/2025, 04/06/2022, 08/30/2021, Additional history exists Lipid Panel 05/01/2026 05/01/2025, 05/2024, 01/29/2023, Additional history exists Colonoscopy 09/12/2031 09/12/2021 Colorectal Cancer Screening 09/12/2031 DTaP/Tdap/Td Vaccines (2 - Td or Tdap) 02/27/2033 02/27/2023 Zoster Vaccines Completed 03/31/2021, 12/17/2019 Pneumococcal Vaccine: 50+ Years Completed 03/14/2023, 03/31/2021 Meningococcal Vaccine Aged Out 03/22/2023 No srinivas costa eligible based on patient's age to complete this topic RSV Patients and Patients Aged 60 years or older Completed 03/03/2025 Hepatitis C Screening Completed 05/01/2025, 023 HIB Vaccines Aged Out No longer eligi [...] Procedure Name Priority Date/Time Associated Diagnosis Comments TSH W/REFLEX TO FT4 Routine 05/01/2025 1 2:02 PM EDT Type 2 diabetes mellitus with hyperglycemia, with long-term current use of insulin (CMS/HCC) VITAMIN D,25-OH,TOTAL,IA Routine 05/01/2025 12:02 PM EDT Type 2 diabetes mellitus with hyperglycemia, with long-term current use of insulin (CMS/HCC) LIPID PANEL, STANDARD Routine 05/01/2025 12:02 PM EDT Type 2 diabetes mellitus with hyperglycemia, with long-term current use of insulin (CMS/HCC) HEPATITIS C AB W/REFL TO HCV RNA, QN, PCR Routine 05/01/2025 12:02 PM EDT Type 2 diabetes mellitus with hyperglycemia, with long-term current use of insulin ([facility]) HIV 1/2 ANTIGEN/ANTIBODY, FOURTH GENERATION W/RFL Routine 05/01/2025 12:02 PM EDT Type 2 diabetes mellitus with hyperglycemia, with long-term current use of insulin ([facility]) COMPREHENSIVE METABOLIC PANEL Routine 05/01/2025 12:02 PM EDT Type 2 diabetes mellitus with hyperglycemia, with long-term current use of insulin ([facility]) CBC WITH AUTO DIFFERENTIAL Routine 05/01/2025 12:02 PM EDT Type 2 diabetes mellitus with hyperglycemia, with long-term current use of insulin (CMS/HCC) URINALYSIS, COMPLETE, WITH REFLEX TO CULTURE Routine 05/01/2025 11:50 AM EDT ALBUMIN, RANDOM URINE W/CREATININE Routine 05/01/2025 11:50 AM EDT Type 2 diabetes mellitus with hyperglycemia, with long-term current use of insulin ([facility]) CULTURE, URINE, ROUTINE Routine 05/01/2025 11:50 AM EDT UTI symptoms POCT GLYCOSYLATED HEMOGLOBIN (HGB A1C) Routine 05/01/2025 11:15 AM EDT Type 2 diabetes mellitus with hyperglycemia, with long-term current use of insulin ([facility]) POCT GLUCOSE Routine 05/01/2025 11:12 AM EDT Type 2 diabetes mellitus with hyperglycemia, with long-term current use of insulin ([facility]) CULTURE, URINE, ROUTINE Routine 05/01/2025 12:00 AM EDT BI MAMMOGRAM SCREENING TOMOSYNTHESIS BILATERAL Routine 05/05/2024 10:20 AM EDT PROPHYLAXIS - ADULT Routine 05/14/2023 1 0:00 AM EDT INTRAORAL - COMPLETE SERIES OF RADIOGRAPHIC IMAGES Routine 03/07/2023 2:00 PM EDT Dental caries Periodontal disease Teeth missing Dental plaque COMPREHENSIVE ORAL EVALUATION - NEW OR ESTABLISHED PATIENT Routine 03/07/2023 2:00 PM EDT Dental caries Periodontal disease Teeth missing Dental plaque HM COLONOSCOPY Routine 09/12/2021 9:13 PM EST from Last 3 Months or Most Recently Relevant to Health Maintenance Results * Vitamin D, 25-Hydroxy, Total, Immunoassay (05/01/2025 12:02 PM EDT) Vitamin D 25-OH Total 44.5 >30 ng/mL [facility] Comment: Health Based Reference Values*< 20 ng/mL Scvairblm36-10 ng/mL Insufficient> 30 ng/mL Sufficient*Jacob RAPP. N Engl J Med. 2007;357:[id number] is no well-established upper level of normal vitamin Dlevels. Some laboratories use 50 ng/mL as an upper limit ofnormal. However, toxicity is patient-dependent and may occurat any level. Careful correlation with the patient'spresentation is necessary and, if there is concern forvitamin D toxicity, treatment should be consideredirrespective of the serum level.Care must be taken in interpreting Vitamin D results fromdifferent laboratories and methodologies. Published datademonstrated that results from patients undergoinghemodialysis may show a negative bias when tested withvarious automated 25-OH vitamin D assays when compared toLC-MS/MS.When testing samples from patients whose predominant form ofVitamin D is Vitamin D2, such as patients receiving VitaminD2 supplementation, results that are subtherapeutic shouldbe confirmed with another method such as LC-MS/MS. Blood Venous blood specimen / Unknown 05/01/2025 12:02 PM EDT 05/01/2025 2:00 PM EDT us Coleen Parker MD LAB BLOOD ORDERABLES Final Result Performing Organization Address [facility]/ZIP Co de Phone Number [facility] [address] [place] [phone] * TSH with Reflex to Free T4 (05/01/2025 12:02 PM EDT) Pathologist [facility] TSH reflex Free T4 2.00 0.32 - 4.0 uIU/mL [facility] Blood Venous blood specimen / Unknown 05/01/2025 12:02 PM EDT 05/01/2025 2:00 PM EDT us Coleen Parker MD LAB BLOOD ORDERABLES Final Result Performing Organization Address [facility]/ZIP Co de Phone Number [facility] [address] [place] [phone] * CBC auto differential (05/01/2025 12:02 PM EDT) White Blood Count 5.3 4.8 - 10.8 X10*3/uL [facility] Red Blood Count 4.56 4.20 - 5.50 X10*6/uL [facility] Hemoglobin 13.7 12.0 - 16.0 g/dl [facility] Hematocrit 40.8 37.0 - 47.0 % [facility] Mean Corpuscular Volume 89.5 80.0 - 98.0 fL [facility] Mean Corpuscular Hemoglobin 30.0 27.0 - 33.0 pg [facility] Mean Corpuscular HGB Conc 33.6 31.0 - 35.0 g/dl [facility] Red Cell Distribution Width 14.3 11.0 - 16.0 % [facility] Platelet Count 221 160 - 400 X10*3/uL [facility] Mean Platelet Volume 12.2 9.4 - 12.3 fL [facility] Neutrophils Percent Auto 62.1 45 - 73 % [facility] Imm Gran Pct Auto 0.4 0.0 - 0.4 % [facility] Lymphocytes Percent Auto 25.8 20 - 40 % [facility] Monocytes Percent Auto 9.2 2 - 11 % [facility] Eosinophils Percent Auto 1.7 0 - 4 % [facility] Basophils Percent Auto 0.8 0 - 2 % [facility] NRBC Pct Auto 0.0 0.0 - 0.2 /100WBC [facility] Neutrophils Absolute Auto 3.3 2.0 - 8.3 x10*3/uL [facility] Imm Gran Abs Auto 0.02 0.00 - 0.03 X10*3/uL [facility] Lymphocytes Absolute Auto 1.4 1.2 - 4.9 X10*3/uL [facility] Monocytes Absolute Auto 0.5 0.1 - 1.2 X10*3/uL [facility] Eosinophils Absolute Auto 0.1 0.0 - 0.4 X10*3/uL [facility] Basophils Absolute Auto 0.0 0.0 - 0.2 X10*3/uL [facility] NRBC Abs Auto 0.000 0.0 - 0.012 X10*3/uL [facility] Blood Venous blood specimen / Unknown 05/01/2025 12:02 PM EDT 05/01/2025 2:00 PM EDT Coleen Parker MD LAB BLOOD ORDERABLES Final Result Performing Organization Address [facility]/ZIP Co de Phone Number [facility] [address] [place] [phone] * Hepatitis C Antibody with Reflex to HCV, RNA, Quantitative, Real-Time PCR (05/01/2025 12:02 PM EDT) Hepatitis C Antibody Nonreactive Nonreactive [facility] Comment:Antibodies to HCV no t detected; does not exclude early acuteHCV infection. Blood Venous blood specimen / Unknown 05/01/2025 12:02 PM EDT 05/01/2025 2:00 PM EDT Coleen Parker MD LAB BLOOD ORDERABLES Final Result Performing Organization Address [facility] Co de Phone Number [facility] [address] [place] [phone] * HIV-1/2 Antigen and Antibodies, Fourth Generation, with Reflexes (05/01/2025 12:02 PM EDT) HIV AB/AG Nonreactive Nonreactive [facility] Comment:HIV-1 p24 Ag and/or HIV-1/HIV-2 Ab not detected.A test result that is nonreactive does not exclude thepossibility of exposure to or infection with HIV-1 and/orHIV-2. Nonreactive results in this assay for individualswith prior exposure to HIV-1 and/or HIV-2 may be due toantigen and antibody levels that are below the limit ofdetection of this assay.The [email or web address] HIV Ag/Ab Combo assay result andsupplemental assay results should be interpreted inconjunction with the patient's clinical presentation,history and other laboratory results. If the results areinconsistent with clinical evidence, additional testing issuggested to confirm the result. Blood Venous blood specimen / Unknown 05/01/2025 12:02 PM EDT 05/01/2025 2:00 PM EDT us Coleen Parker MD LAB BLOOD ORDERABLES Final Result Performing Organization Address [facility]/ZIP Co de Phone Number [facility] [address] [place] [phone] * Lipid Panel, Standard (05/01/2025 12:02 PM EDT) Triglycerides 77 <150 mg/dL [facility] Comment:Desirable Triglyceri de: less than 150 mg/dLBorderline High Triglyceride 150-199 mg/dLHigh Triglyceride: 200-499 mg/dLVery High Triglyceride: greater than or equal to 5OO mg/dL Cholesterol 171 <200 mg/dL [facility] Comment:Desirable Cholestero l: less than 200 mg/dLBorderline High Cholesterol: 200-239 mg/dLHigh Cholesterol: greater than 239 mg/dL LDL Cholesterol Calculated 96 <100 mg/dL [facility] Comment:Desirable LDL: less than 100 mg/dLNear Optimal/Above Optimal LDL: 110- 129 mg/dLBorderline High LDL: 130-159 mg/dLHigh LDL: 160-189 mg/dLVery High LDL: greater than or equal to 190 mg/dL HDL Cholesterol 60 >40 mg/dL [facility] Comment:Desirable HDL: great er than 40 mg/dL Note: This HDL assay may give artificially low results in patients with liver disease. Blood Venous blood specimen / Unknown 05/01/2025 12:02 PM EDT 05/01/2025 2:00 PM EDT us Coleen Parker MD LAB BLOOD ORDERABLES Final Result Performing Organization Address [facility]/ZIP Co de Phone Number [facility] [address] [place] [phone] * (ABNORMAL) Comprehensive Metabolic Panel (05/01/2025 12:02 PM EDT) Sodium 139 135 - 145 mmol/L [facility] Potassium 3.9 3.3 - 5.1 mmol/L [facility] Chloride 104 96 - 108 mmol/L [facility] Carbon Dioxide 28 22 - 29 mmol/L [facility] Anion Gap 11(L) 12 - 20 [facility] Urea Nitrogen (BUN) 22(H) 9 - 16 mg/dL [facility] Creatinine, Serum 0.72 0.5 - 1.4 mg/dL [facility] Estimated Glomerular Filt Rate >60 [facility] Comment:Chronic Kidney Disea se: Estimated GFR < 60 mL/min/1.51p6Iymjox Kidney Disease: Estimated GFR < 15 mL/min/1.73m2 Glucose 138(H) 60 - 115 mg/dL [facility] Calcium 9.1 8.4 - 10.2 mg/dL [facility] Bilirubin, Total 0.6 0.0 - 1.0 mg/dL [facility] Aspartate Amino Transferase 25 5 - 31 U/L [facility] Alanine Aminotransferase 20 0 - 31 U/L [facility] Total Protein 7.4 6.5 - 8.0 g/dL [facility] Albumin Level 4.4 3.5 - 5.0 g/dL [facility] Alkaline Phosphatase 70 39 - 117 U/L [facility] Blood Venous blood specimen / Unknown 05/01/2025 12:02 PM EDT 05/01/2025 2:00 PM EDT us Coleen Parker MD LAB BLOOD ORDERABLES Final Result [facility] [address] [place] [phone] * (ABNORMAL) Urinalysis, Complete, with Reflex to Culture (05/01/2025 11:50 AM EDT) Color Urine Yellow [facility] Appearance Urine Cloudy [facility] PH 6.0 5.0 - 9.0 [facility] Glucose Urine UA 500(A) Negative mg/dL [facility] Urine Blood Negative Negative [facility] Specific [place] - Urine 1.020 1.005 - 1.025 [facility] Urine Protein Negative Neg-Trace mg/dL [facility] Urine Ketones Trace Negative mg/dL [facility] Nitrite Urine Positive(A) Negative [facility] Leukocyte Esterase Urine Large (3+)(A) Negative [facility] RBC Urine 0-2 0 - 2 /HPF [facility] Urine WBC >50(A) 0 - 5 /HPF [facility] Urine Squamous Epithelial Cell 3-5 0 - 2 /HPF [facility] Urine Bacteria 4+ None Seen [facility] Hyaline Casts, Urine 0-2 0 - 2 /LPF [facility] 05/01/2025 11:5 0 AM EDT 05/01/2025 5:43 PM EDT Narrative [facility] - 05/01/2025 5:59 PM EDT Urine, Clean Catch us Coleen Parker MD LAB URINE ORDERABLES Final Result Performing Organization Address City/State/[facility] Co de Phone Number [facility] [address] [place] [phone] * Albumin, Random Urine W/Creatinine (05/01/2025 11:50 AM EDT) Creatinine, Urine 155.19 mg/dL [facility] Microalbumin Urine 10.0 mg/L [facility] Microalbum Creatinine Ratio Ur 6.4 <30 ug/mg cr [facility] Comment:Albumin/Creatinine R atio Reference Ranges: Normal: < 30 ug/mg creatinine Microalbuminuria: 30 - 300 ug/mg creatinineClinical Albuminuria: > 300 ug/mg creatinine Urine (Urine, Random) 05/01/2025 11:50 AM EDT 05/01/2025 5:43 PM EDT us Coleen Parker MD LAB URINE ORDERABLES Final Result [facility] [address] [place] [phone] * Culture, Urine, Routine (05/01/2025 11:50 AM EDT) Only the most recent of2 resultswithin the time period is included. Urine Urine specimen obtained by clean catch procedure / Unknown 05/01/2025 11:50 AM EDT 05/01/2025 5:43 PM EDT Comment:UACC Narrative [facility] - 05/03/2025 8:11 AM EDT Escherichia coli ESBL Note: NOTE: Extended-Spectrum Beta-Lactamase enzyme present Quant > 100,000 cfu/mL Escherichia coli: Ampicillin >=32(R) Escherichia coli: Cefazolin (Urine) >=32(R) Escherichia coli: Cefepime 2(S) Escherichia coli: Ceftriaxone >=64(R) Escherichia coli: Ciprofloxacin 0.5(I) Escherichia coli: Ertapenem <=0.12(S) Escherichia coli: Gentamicin >=16(R) Escherichia coli: Nitrofurantoin <=16(S) Escherichia coli: Trimethoprim/Sulfamethoxazole >=320(R) Specimen Source: Urine clean catch Coleen Parker MD LAB MICROBIOLOGY - GE NERAL ORDERABLES Final Result Performing Organization Address City/[facility]/ZIP Co de Phone Number [facility] [address] [place] [phone] * (ABNORMAL) POCT glycosylated hemoglobin (Hgb A1c) (05/01/2025 11:15 AM EDT) Hemoglobin A1C 6.6(A) 4.0 - 5.7 % QC Media Lot # [id number] Lot# Expiration Date [id number] Blood Capillary blood specimen / Unknown 05/01/2025 [...] AM EDT Narrative 05/28/2024 9:32 AM EDT [facility] [address] [place] [address] Mammography Report Signed Patient: Diana Mai MR#: [id number] : 1955 Acct:[id number] Age/Sex: 68 / F ADM Date: 05/05/24 Loc: HO.MAMMO Attending Dr: Coleen Parker MD Ordering Physician: Coleen Bright MD Results: 1Negative Date of Service: 05/05/24 Follow Up: 1 Year From Orig ina Mammogram Procedure(s): MM tomosynthesis screening BI Accession Number(s): [id number] cc: Coleen Bright MD EXAMINATION: MM SCREENING [...] in OV> 05/28/24 0928 DD/ 1020 TD/TT: Sat Math Tutor: Procedure Note Donotuseinterpreter, Image - [facility]28[facility] [address] [place] [address] Mammography Report Signed Patient: Diana MaiMR#: [id number] : 7Acct:[id number] Age/Sex: 68 / FADM Date: 05/05/24 Loc: HO.MAMMO Attending Dr: Coleen Parker MD Ordering Physician: Coleen Bright MDResults: 1Negative Date of Service: 05/05/24Follow Up: 1 Year From Orig inal Mammogram Procedure(s): MM tomosynthesis screening BI Accession Number(s): [id number] cc: Coleen Bright MD EXAMINATION: MM SCREENING [...] in OV> 05/28/24 0928 DD/ 1020 TD/TT: Sat Math Tutor: us Coleen Parker MD IMG BI PROCEDURES Eric ольга Result - Final * Hm Colonoscopy (09/12/2021 9:13 PM EST) Colonoscopy Normal Normal Narrative Nuha Cantrell - 09/12/2021 9:13 PM EST Recommended 10 year follow up ( see legacy note on 09/12/2021) us Historical Provider HEALTH MAINTENANCE Edited Result - Final from Last 3 Months or Most Recently Relevant to Health Maintenance Insurance [facility] [employer]-TERM OPTIONS (O D-SNP) CARLA ACKERMAN [id number] [facility] Care Teams Spray Gun Sizer Relationship Specialty Start Date End Date Coleen Bright MD [address] [place] [address] PCP - General Family Medicine 12/16/19
== END 2025-05-11 10:02 | disposition home or self-care (01) ==
LOC: HO.MAMMO 10:01
PROVIDERS: PCP Internal Medicine; Visit Provider Internal Medicine
DX: Z12.31 Encounter for screening mammogram for malignant neoplasm of breast (principal)
CPT/HCPCS: 77063; 77067

== ENCOUNTER → 2025-05-11 10:15 | Outpatient (BNV) | payer OTHER, SELFPAY | PROVIDERS: PCP Internal Medicine; Visit Provider Radiology Body Imaging | DX: Z12.31 Encounter for screening mammogram for malignant neoplasm of breast (principal) | CPT/HCPCS: 77063; 77067 ==

== ENCOUNTER 2025-05-15 14:06 | Outpatient (AMB) | payer OTHER, SELFPAY ==
--- OUTSIDE RECORDS SUMMARY | 2024-08-14 10:15 | XMS_ITS ---
Author Organization [facility] Address [address] [place] [address] Care Team Providers Care Family Support Specialist Name Role Phone Coleen Alvarez M.D. Primary Care Provider Freddy Messina Jr, Rhett Martin REASON FOR VISIT Patient presents today for GERD Encounters Encounter Location Date Provider Diagnosis [facility] [address] [facility] [address] [place] [phone] 08/14/2024 Rhett Messina Jr Plan Of Treatment Next Appt Details Provider Name:Rhett jasmine Jr, 05/21/2025 02:35:00 PM, [address] [place] [address], [address], [place], [address], Progress Notes * SHAJI BRANDTDOB:0 1955 (69 yo F)Acc No.[id number]:08/14/2024 Progress Notes Patient: SHAJI KO Provider: Siobhan Messina MD :1955 A ge:68 Y S ex:Female Date:08/14/2024 Address:[address] [place] [address] Pcp:Coleen Alvarez M.D. Subjective: * Chief Complaints: * 1 . Patient presents today for GERD. * Medical History: Objective: * Vitals: Assessment: Plan: * Treatment: * * The named appointment provid er may or may not be the originator of this progress note, and it is not deemed complete until electronically signed by the appointment provider. Sign off status: Pending * Provider: Siobhan Messina MD Date: 1 Generated for Mary parry/Traci/Beatriz on: 0 05/15/2025 02:08 PM EDT
--- OUTSIDE RECORDS SUMMARY | 2025-05-15 14:08 | XMS_ITS | Clinical Summary ---
Author Organization [employer] Address [address] [facility] [address] [place] [address] Care Team Providers Care Clinical Technologist Name Role Phone Coleen Bright MD Primary Care Provide r Allergies No known active allergies Medications * This document contains information received from the source organization and may not represent a complete record from that organization. Blood Glucose Monitoring Suppl (FreeStyle Lite) deviceIndicatio ns:Type 2 diabetes mellitus without complication, without long-term current use of insulin ([facility]) Inject 1 each under the skin 2 [...] 023 Active Blood Glucose Monitoring Suppl (FreeStyle Matthews Lite) w/Device kitIndications: Type 2 diabetes mellitus with hyperglycemia, with long-term current use of insulin ([facility]) Use to test blood sugar 2 times [...] hyperglycemia, with long-term current use of insulin ([facility]) 1 each 2 times daily. 1 kit 024 Active dextran 70-hypromellose (artificial tears) 0.1-0.3 % ophthalmic solutionIndicat ions:Red eyes Administer 1 drop into both eyes if needed in the morning, at noon, and at bedtime for dry eyes. 30 mL 1 024 2024 Active OneTouch Delica Lancets 33G miscIndications :Type 2 diabetes mellitus with hyperglycemia, with long-term current use of insulin ([facility]) 1 each 3 times daily. TEST BLOOD SUGAR TWICE A DAY 100 each 11 Active TRUEplus Lancets 33G miscIndications :Type 2 diabetes mellitus with hyperglycemia, unspecified whether residential insulin use ([facility]) Use to check blood sugar 3x daily 300 each 024 Active hydrOXYzine pamoate (Vistaril) 25 MG capsuleIndicati ons:Anxiety Take 1 tablet by mouth up to twice a day as needed for anxiety and difficulty sleeping. 30 capsule 024 Active insulin pen needle (UltiCare Mini Pen Vashon) 31G x 6 mm miscIndications :Type 2 diabetes mellitus with hyperglycemia, unspecified whether oysterman insulin use ([facility]) USE FOR inyectar INSULIN DAILY DIRECTED 100 each 3 Active glucose blood test stripIndication s:Type 2 diabetes mellitus without complication, with long-term current use of insulin ([facility]) Use as instructed kip tello 100 each [...] complication, with long-term current use of insulin ([facility]) INJECT 40 UNITS SUBCUTANEOUSLY EVERY DAY IN THE EVENING DIRECTED 15 mL 3 025 Active pioglitazone (Actos) 15 MG tabletIndicatio ns:Type 2 diabetes mellitus with hyperglycemia, unspecified whether residential insulin use ([facility]) TAKE 1 TABLET BY MOUTH EVERY DAY [...] 2 diabetes mellitus with hyperglycemia, unspecified whether residential insulin use ([facility]) take 1 tablet by oral route every [...] hyperglycemia, with long-term current use of insulin ([facility]) TAKE 2 TABLETS BY MOUTH THREE TIMES DAILY 15 TO 30 MINUTES BEFORE MEALS 540 tablet 1 025 Active semaglutide (Ozempic, 1 MG/DOSE,) 4 MG/3ML solution pen-injectorInd ications:Type 2 diabetes mellitus with hyperglycemia, with long-term current use of insulin ([facility]) Inject 1 mg under the skin 1 [...] 025 Active Blood Glucose Monitoring Suppl (FreeStyle Matthews Lite) w/Device kitIndications: Type 2 diabetes mellitus with hyperglycemia, with long-term current use of insulin ([facility]) Use to test blood sugar 1 times [...] mellitus with other specified complication, unspecified whether residential insulin use ([facility]) INJECT ONE PEN (=1.5MG) SUBCUTANEOUSLY ONCE A WEEK DIRECTED 2 mL 024 2024 Discontinued dulaglutide (Trulicity) 1.5 MG/0.5ML solution pen-injectorInd ications:Type 2 diabetes mellitus with hyperglycemia, with long-term current use of insulin ([facility]) Inject 1.5 mg under the skin 1 (one) time per week. 4 each 024 2024 Discontinued semaglutide (Ozempic) 2 MG/1.5ML solution pen-injectorInd ications:Type 2 diabetes mellitus with hyperglycemia, with long-term current use of insulin ([facility]) Inject 0.5 mg under the skin 1 (one) time per week. 1 each 024 2024 Discontinued repaglinide (Prandin) 2 MG tabletIndicatio ns:Type 2 diabetes mellitus with hyperglycemia, with long-term current use of insulin ([facility]) TAKE 2 TABLETS BY MOUTH THREE TIMES DAILY 15 TO 30 MINUTES BEFORE MEALS 540 tablet 1 024 2024 Discontinued ciprofloxacin (Cipro) 500 MG tabletIndicatio ns:Urinary tract infection without hematuria, site unspecified Take 1 tablet (500 mg) by mouth 2 times daily for 7 days. 14 tablet 025 2024 Discontinued nitrofurantoin, macrocrystal-mo nohydrate, (Macrobid) 100 MG capsuleIndicati ons:UTI symptoms Take 1 capsule (100 mg) by mouth 2 times daily for 7 days. 14 capsule 025 2024 Active Problems Problem Noted Date Diagnosed Date [...] -Changes: counseling about diabetic diet done today, watchmaking teacher referral - Diabetic eye exam:up to date [...] intervention , Patient to reach out to [facility] team as needed, and Patient to engage [...] Plan (01/29/2023 5:39 PM EDT): Seen by [facility] Provider -Patient requested medication so she can manage her anxiety this week until the Services for her Mother -Agreed to prescribe short-supply of medication hydroxyzine -Advised to get connected with [facility] and possibly with psychiatrist if she [...] Type Department Care Team Description 05/06/2025 Telephone [facility] [address] [place] [phone] Coleen Bright MD Prior Authorization 05/04/2025 Orders Only [facility] [address] [place] [address] Coleen Bright MD 05/04/2025 Orders Only [facility] [address] [place] [address] Coleen Bright MD UTI symptoms (Primary Dx) 05/04/2025 Orders Only [facility] [address] [place] [phone] Coleen Bright MD Urinary tract infection without hematuria, site unspecified (Primary Dx) 05/04/2025 Telephone [facility] [address] [place] [phone] Coleen Bright MD Lab Results (Pt walking requesting lab results ) 05/01/2025 11:00 AM EDT Office Visit [address] [address] Coleen Bright MD Essential hypertension (Primary Dx); Type 2 diabetes mellitus with hyperglycemia, with long-term current use of insulin ([facility]); Chronic right-sided low back pain with right-sided sciatica; UTI symptoms; History of recurrent UTIs 05/01/2025 Orders Only [facility] [address] [place] [phone] Coleen Bright MD 05/01/2025 Travel 04/30/[address] [address] Coleen Bright MD Chart Prep 04/20/2025 Refill [facility] [address] [place] [phone] Coleen Bright MD Type 2 diabetes mellitus with hyperglycemia, with long-term current use of insulin (CMS/HCC) 03/24/2025 5:40 PM EDT Office Visit [facility] [address] Niko Nicholson MD Strain of left trapezius muscle, initial encounter (Primary Dx) 03/20/2025 Refill [facility] [address] [place] [phone] Coleen Bright MD Type 2 diabetes mellitus with hyperglycemia, unspecified whether oysterman insulin use (CMS/HCC) 03/11/2025 Refill [facility] [address] [place] [address] Coleen Bright MD Type 2 diabetes mellitus with hyperglycemia, unspecified whether oysterman insulin use ([facility]); Primary hypertension; Heartburn 02/20/2025 Orders Only [facility] [address] [place] [address] Provider, MD Kathrine from Last 3 Months [...] your housing situation today? I have valentino sing 05/22/[address] you li [...] Additional history exists Lipid Panel 05/01/2026 05/01/2025, 0505/2024, 01/29/2023, Additional history exists Colonoscopy 09/12/2031 09/12/2021 [...] with long-term current use of insulin (CMS/HCC) HIV 1/2 ANTIGEN/ANTIBODY, FOURTH GENERATION W/RFL Routine 05/01/2025 12:02 PM EDT Type 2 diabetes mellitus with hyperglycemia, with long-term current use of insulin (CMS/HCC) COMPREHENSIVE METABOLIC PANEL Routine 05/01/2025 12:02 PM EDT Type 2 diabetes mellitus with hyperglycemia, with long-term current use of insulin (CMS/HCC) CBC WITH AUTO DIFFERENTIAL Routine 05/01/2025 12:02 PM EDT Type 2 diabetes mellitus with hyperglycemia, with long-term current use of insulin (CMS/HCC) URINALYSIS, COMPLETE, WITH REFLEX TO CULTURE Routine 05/01/2025 11:50 AM EDT ALBUMIN, RANDOM URINE W/CREATININE Routine 05/01/2025 11:50 AM EDT Type 2 diabetes mellitus with hyperglycemia, with long-term current use of insulin ([facility]) CULTURE, URINE, ROUTINE Routine 05/01/2025 11:50 AM EDT UTI symptoms POCT GLYCOSYLATED HEMOGLOBIN (HGB A1C) Routine 05/01/2025 11:15 AM EDT Type 2 diabetes mellitus with hyperglycemia, with long-term current use of insulin ([facility]) POCT GLUCOSE Routine 05/01/2025 11:12 AM EDT Type 2 diabetes mellitus with hyperglycemia, with long-term current use of insulin ([facility]) CULTURE, URINE, ROUTINE Routine 05/01/2025 12:00 AM [...] Vitamin D 25-OH Total 44.5 >30 ng/mL [facility] Comment: Health Based Reference Values*< 20 ng/mL [id number] ng/mL Insufficient> 30 ng/mL Sufficient*Jacob RAPP. N [...] BLOOD ORDERABLES Final Result Performing Organization Address City/[facility]/ZIP Co de Phone Number [facility] [address] [place] [phone] * TSH with Reflex to Free T4 (05/01/2025 12:02 PM EDT) Pathologist [facility] TSH reflex Free T4 2.00 0.32 - 4.0 uIU/mL [facility] Blood Venous blood specimen / Unknown 05/01/2025 12:02 PM EDT 05/01/2025 2:00 PM EDT us Coleen Parker MD LAB BLOOD ORDERABLES Final Result Performing Organization Address [facility]/ZIP Co de Phone Number [facility] [address] [place] [phone] * CBC auto differential (05/01/2025 12:02 PM EDT) White Blood Count 5.3 4.8 - 10.8 X10*3/uL [facility] Red Blood Count 4.56 4.20 - 5.50 X10*6/uL [facility] Hemoglobin 13.7 12.0 - 16.0 g/dl [facility] Hematocrit 40.8 37.0 - 47.0 % [facility] Mean Corpuscular Volume 89.5 80.0 - 98.0 fL [facility] Mean Corpuscular Hemoglobin 30.0 27.0 - 33.0 pg [facility] Mean Corpuscular HGB Conc 33.6 31.0 - 35.0 g/dl [facility] Red Cell Distribution Width 14.3 11.0 - 16.0 % [facility] Platelet Count 221 160 - 400 X10*3/uL [facility] Mean Platelet Volume 12.2 9.4 - 12.3 fL [facility] Neutrophils Percent Auto 62.1 45 - 73 % [facility] Imm Gran Pct Auto 0.4 0.0 - 0.4 % [facility] Lymphocytes Percent Auto 25.8 20 - 40 % [facility] Monocytes Percent Auto 9.2 2 - 11 % [facility] Eosinophils Percent Auto 1.7 0 - 4 % [facility] Basophils Percent Auto 0.8 0 - 2 % [facility] NRBC Pct Auto 0.0 0.0 - 0.2 /100WBC [facility] Neutrophils Absolute Auto 3.3 2.0 - 8.3 x10*3/uL [facility] Imm Gran Abs Auto 0.02 0.00 - 0.03 X10*3/uL [facility] Lymphocytes Absolute Auto 1.4 1.2 - 4.9 X10*3/uL [facility] Monocytes Absolute Auto 0.5 0.1 - 1.2 X10*3/uL [facility] Eosinophils Absolute Auto 0.1 0.0 - 0.4 X10*3/uL [facility] Basophils Absolute Auto 0.0 0.0 - 0.2 X10*3/uL [facility] NRBC Abs Auto 0.000 0.0 - 0.012 X10*3/uL [facility] Blood Venous blood specimen / Unknown 05/01/2025 12:02 PM EDT 05/01/2025 2:00 PM EDT Coleen Parker MD LAB BLOOD ORDERABLES Final Result Performing Organization Address [facility]/ZIP Co de Phone Number [facility] [address] [place] [phone] * Hepatitis C Antibody with Reflex to HCV, RNA, Quantitative, Real-Time PCR (05/01/2025 12:02 PM EDT) Hepatitis C Antibody Nonreactive Nonreactive [facility] Comment:Antibodies to HCV no t detected; does not exclude early acuteHCV infection. Blood Venous blood specimen / Unknown 05/01/2025 12:02 PM EDT 05/01/2025 2:00 PM EDT Coleen Parker MD LAB BLOOD ORDERABLES Final Result Performing Organization Address [facility] Co de Phone Number [facility] [address] [place] [phone] * HIV-1/2 Antigen and Antibodies, Fourth Generation, with Reflexes (05/01/2025 12:02 PM EDT) HIV AB/AG Nonreactive Nonreactive [facility] Comment:HIV-1 p24 Ag and/or HIV-1/HIV-2 Ab not detected.A test result that is nonreactive does not exclude thepossibility of exposure to or infection with HIV-1 and/orHIV-2. Nonreactive results in this assay for individualswith prior exposure to HIV-1 and/or HIV-2 may be due toantigen and antibody levels that are below the limit ofdetection of this assay.[employer] HIV Ag/Ab Combo assay result andsupplemental assay results should be interpreted inconjunction with the patient's clinical presentation,history and other laboratory results. If the results areinconsistent with clinical evidence, additional testing issuggested to confirm the result. Blood Venous blood specimen / Unknown 05/01/2025 12:02 PM EDT 05/01/2025 2:00 PM EDT us Coleen Parker MD LAB BLOOD ORDERABLES Final Result Performing Organization Address [facility]/ZIP Co de Phone Number [facility] [address] [place] [phone] * Lipid Panel, Standard (05/01/2025 12:02 PM EDT) Triglycerides 77 <150 mg/dL [facility] Comment:Desirable Triglyceri de: less than 150 mg/dLBorderline High Triglyceride 150-199 mg/dLHigh Triglyceride: 200-499 mg/dLVery High Triglyceride: greater than or equal to 5OO mg/dL Cholesterol 171 <200 mg/dL [facility] Comment:Desirable Cholestero l: less than 200 mg/dLBorderline High Cholesterol: 200-239 mg/dLHigh Cholesterol: greater than 239 mg/dL LDL Cholesterol Calculated 96 <100 mg/dL [facility] Comment:Desirable LDL: less than 100 mg/dLNear Optimal/Above Optimal LDL: 110- 129 mg/dLBorderline High LDL: 130-159 mg/dLHigh LDL: 160-189 mg/dLVery High LDL: greater than or equal to 190 mg/dL HDL Cholesterol 60 >40 mg/dL [facility] Comment:Desirable HDL: great er than 40 mg/dL Note: This HDL assay may give artificially low results in patients with liver disease. Blood Venous blood specimen / Unknown 05/01/2025 12:02 PM EDT 05/01/2025 2:00 PM EDT us Coleen Parker MD LAB BLOOD ORDERABLES Final Result Performing Organization Address City/[facility]/ZIP Co de Phone Number [facility] [address] [place] [phone] * (ABNORMAL) Comprehensive Metabolic Panel (05/01/2025 12:02 PM EDT) Sodium 139 135 - 145 mmol/L [facility] Potassium 3.9 3.3 - 5.1 mmol/L [facility] Chloride 104 96 - 108 mmol/L [facility] Carbon Dioxide 28 22 - 29 mmol/L [facility] Anion Gap 11(L) 12 - 20 [facility] Urea Nitrogen (BUN) 22(H) 9 - 16 mg/dL [facility] Creatinine, Serum 0.72 0.5 - 1.4 mg/dL [facility] Estimated Glomerular Filt Rate >60 [facility] Comment:Chronic Kidney Disea se: Estimated GFR < 60 mL/min/1.44a6Mdaqxy Kidney Disease: Estimated GFR < 15 mL/min/1.73m2 Glucose 138(H) 60 - 115 mg/dL [facility] Calcium 9.1 8.4 - 10.2 mg/dL [facility] Bilirubin, Total 0.6 0.0 - 1.0 mg/dL [facility] Aspartate Amino Transferase 25 5 - 31 U/L [facility] Alanine Aminotransferase 20 0 - 31 U/L [facility] Total Protein 7.4 6.5 - 8.0 g/dL [facility] Albumin Level 4.4 3.5 - 5.0 g/dL [facility] Alkaline Phosphatase 70 39 - 117 U/L [facility] Blood Venous blood specimen / Unknown 05/01/2025 12:02 PM EDT 05/01/2025 2:00 PM EDT us Coleen Parker MD LAB BLOOD ORDERABLES Final Result [facility] [address] [place], [place] [phone] * (ABNORMAL) Urinalysis, Complete, with Reflex to Culture (05/01/2025 11:50 AM EDT) Color Urine Yellow [facility] Appearance Urine Cloudy [facility] PH 6.0 5.0 - 9.0 [facility] Glucose Urine UA 500(A) Negative mg/dL [facility] Urine Blood Negative Negative [facility] Specific [place] - Urine 1.020 1.005 - 1.025 [facility] Urine Protein Negative Neg-Trace mg/dL [facility] Urine Ketones Trace Negative mg/dL [facility] Nitrite Urine Positive(A) Negative [facility] Leukocyte Esterase Urine Large (3+)(A) Negative [facility] RBC Urine 0-2 0 - 2 /HPF [facility] Urine WBC >50(A) 0 - 5 /HPF [facility] Urine Squamous Epithelial Cell 3-5 0 - 2 /HPF [facility] Urine Bacteria 4+ None Seen [facility] Hyaline Casts, Urine 0-2 0 - 2 /LPF [facility] 05/01/2025 11:5 0 AM EDT 05/01/2025 5:43 PM EDT Narrative [facility] - 05/01/2025 5:59 PM EDT Urine, Clean Catch us Coleen Parker MD LAB URINE ORDERABLES Final Result Performing Organization Address City/State/[facility] Co de Phone Number [facility] [address] [place] [phone] * Albumin, Random Urine W/Creatinine (05/01/2025 11:50 AM EDT) Creatinine, Urine 155.19 mg/dL [facility] Microalbumin Urine 10.0 mg/L [facility] Microalbum Creatinine Ratio Ur 6.4 <30 ug/mg cr [facility] Comment:Albumin/Creatinine R atio Reference Ranges: Normal: < 30 ug/mg creatinine Microalbuminuria: 30 - 300 ug/mg creatinineClinical Albuminuria: > 300 ug/mg creatinine Urine (Urine, Random) 05/01/2025 11:50 AM EDT 05/01/2025 5:43 PM EDT us Coleen Parker MD LAB URINE ORDERABLES Final Result [facility] [address] [place] [phone] * Culture, Urine, Routine (05/01/2025 11:50 AM EDT) Only the most recent of2 resultswithin the time period is included. Urine Urine specimen obtained by clean catch procedure / Unknown 05/01/2025 11:50 AM EDT 05/01/2025 5:43 PM EDT Comment:UACC Narrative [facility] - 05/03/2025 8:11 AM EDT Escherichia [...] MICROBIOLOGY - GE NERAL ORDERABLES Final Result [facility] [address] [place] [phone] * (ABNORMAL) POCT glycosylated hemoglobin (Hgb A1c) (05/01/2025 11:15 AM EDT) Hemoglobin A1C 6.6(A) 4.0 - 5.7 % QC Media Lot # [id number] Lot# Expiration Date ,027 Blood Capillary blood specimen / Unknown 05/01/2025 [...] AM EDT Narrative 05/28/2024 9:32 AM EDT [facility]'[address] [place], [place] [address] Mammography Report Signed Patient: Diana Mai MR#: [id number] : [id number] Acct:[id number] Age/Sex: 68 / F ADM Date: 05/05/24 Loc: HO.MAMMO Attending Dr: Coleen Parker MD Ordering Physician: Coleen Bright MD Results: 1Negative Date of Service: 05/05/24 Follow Up: 1 Year From [facility] Mammogram Procedure(s): MM tomosynthesis screening BI Accession Number(s): [id number] cc: Coleen Bright MD EXAMINATION: MM SCREENING [...] signed by Gale Schmidt MD in OV> 05/28/2428 DD/ 1020 TD/TT: Fiber Locking Supervisor: Procedure Note Donotuseinterpreter, Image - 05[facility]28/2024 [facility] [address] [place] [address] Mammography Report Signed Patient: Diana MaiMR#: [id number] : 7Acct:[id number] Age/Sex: 68 / FADM Date: 05/05/24 Loc: HODanoMAMMO Attending Dr: Coleen Parker MD Ordering Physician: Coleen Bright MDResults: 1Negative Date of Service: 05/05/24Follow Up: 1 Year From Orig inal Mammogram Procedure(s): MM tomosynthesis screening BI Accession Number(s): [id number] cc: Coleen Bright MD EXAMINATION: MM SCREENING [...] in OV> 05/28/24 0928 DD/ 1020 TD/TT: Fiber Locking Supervisor: us Coleen Parker MD IMG BI PROCEDURES Eric ольга Result - Final * Hm Colonoscopy (09/12/2021 9:13 PM EST) Colonoscopy Normal Normal Narrative Nuha Cantrell - 09/12/2021 9:13 PM EST Recommended 10 year follow up ( see legacy note on 09/12/2021) us Historical Provider HEALTH MAINTENANCE Edited Result - Final from Last 3 Months or Most Recently Relevant to Health Maintenance Insurance [facility] LONG TERM OPTIONS (O D-SNP) CARLA ACKERMAN [id number] [facility] Care Teams Clinical Technologist Relationship Specialty Start Date End Date Coleen Bright MD [address] [place] [phone] PCP - General Family Medicine 12/16/19
--- NOTE | 2025-05-15 14:34 | A.OFFVIS_ITS ---
Intake Visit Reasons: recurrent UTIS Intake Note: New patient presents today for initial visit for recurrent UTI's Urology Medication:None Blood Thinner:None Antibiotic Allergies:None PVR:10ml Allergies No Known Allergies Allergy (Verified 05/15/25 14:42) PFSH Medical History Migraine Mood disorder Osteoarthritis GERD (gastroesophageal reflux disease) Hypertension Diabetes Surgical History History of surgery on lower extremity H/O: hysterectomy H/O colonoscopy H/O abdominal surgery H/O knee surgery Social History Alcohol intake: never Patient Tobacco Use Status: Never used Tobacco Second Hand Smoke Exposure: No Results AMB Urinalysis, Automated UA Leukoctes 0 Diony/uL Last Edit by Kirstin Jacobs on 05/15/25 16:46 UA Nitrite Negative Last Edit by Kirstin Jacobs on 05/15/25 16:46 UA Urobilinogen 3.5 mg/dL Last Edit by Kirstin Jacobs on 05/15/25 16:46 UA Protein 0 mg/dL Last Edit by Kirstin Jacobs on 05/15/25 16:46 UA pH 6.0 Last Edit by Kirstin Jacobs on 05/15/25 16:46 UA Blood 0 Eric/uL Last Edit by Kirstin Jacobs on 05/15/25 16:46 UA Specific [place] 1.010 Last Edit by Kirstin Jacobs on 05/15/25 16:46 UA Ketone Negative Last Edit by Kirstin Jacobs on 05/15/25 16:46 UA Bilirubin 0 mg/dL Last Edit by Kirstin Jacobs on 05/15/25 16:46 UA Glucose 60 mg/dL Last Edit by Kirstin Jacobs on 05/15/25 16:46 Assessment & Plan Assessment & Plan Orders: Orders AMB Urinalysis Automated Today N39.0 - Urinary tract infection, site not specified AMB Post Void Residual by ultrasound Today N39.0 - Urinary tract infection, site not specified Coding
== END 2025-05-15 15:15 | disposition home or self-care (01) ==
LOC: HO.HUSH 14:07
PROVIDERS: PCP Internal Medicine; Visit Provider Urology
DX: N39.0 Urinary tract infection, site not specified (principal)

== ENCOUNTER → 2025-05-15 14:06 | Outpatient (BNVA) | payer OTHER, SELFPAY | PROVIDERS: PCP Internal Medicine; Visit Provider Urology | DX: N39.0 Urinary tract infection, site not specified (principal); K59.00 Constipation, unspecified; Z78.0 Asymptomatic menopausal state | CPT/HCPCS: 81003; 99202 ==

== ENCOUNTER 2025-05-27 08:36 | Outpatient (REF) | payer OTHER, SELFPAY ==
--- OUTSIDE RECORDS SUMMARY | 2024-08-14 10:15 | XMS_ITS ---
Author Organization [facility] Address [address] [place] [phone] Care Team Providers Care Spa Concierge Name Role Phone Coleen Alvarez M.D. Primary Care Provider Freddy Messina Jr, Rhett Martin [phone] REASON FOR VISIT Patient presents today for GERD Encounters Encounter Location Date Provider Diagnosis [facility] [address] [place] [phone] 08/14/2024 Rhett Messina Jr Plan Of Treatment Next Appt Details Provider Name:Rhett jasmine Jr, 05/17/2026 10:20:00 AM, [address] [place] [address], [address], [place], [address], Progress Notes * SHAJI BRANDTDOB:0 1955 (69 yo F)Acc No.[id number]:08/14/2024 Progress Notes Patient: SHAJI KO Provider: Siobhan Messina MD :1955 A ge:68 Y S ex:Female Date:08/14/2024 Address:[address] [place] [address] Pcp:Coleen Alvarez M.D. Subjective: * Chief Complaints: [...] Pending * Provider: Siobhan Messina MD Date: Generated for Mary parry/Traci/Beatriz on: 0 05/27/2025 08:46 AM EDT
--- NOTE | ~2025-05-27 | US_ITS ---
EXAMINATION: MM DIAGNOSTIC DIGITAL BREAST TOMOSYNTHESIS, RIGHT Limited right breast ultrasound. CLINICAL INFORMATION: Call back from screening for focal asymmetry in the upper outer right breast. COMPARISON: Mammography: [facility] on PACS. TECHNIQUE: Digital breast tomosynthesis is performed in both the craniocaudal and mediolateral oblique views along with computer-aided detection (CAD). Synthesized 2D images are generated from the tomosynthesis. FINDINGS: There are scattered areas of fibroglandular density (ACR BI-RADS breast composition Category b). Previously seen focal asymmetry in the upper outer right breast does not persist on additional imaging projections and likely represented overlapping breast tissue. There are no significant masses, abnormal calcifications, or other abnormalities. Targeted color Doppler ultrasound scanning in the lateral right breast upper outer quadrant demonstrates normal fibroglandular breast tissue. There is no sonographic abnormal finding. US/US breast RT limited mamm only IMPRESSION: There are no significant changes from prior study. ASSESSMENT: BI-RADS BI-RADS 1 - Negative RECOMMENDATION: 1 year F/U Results were provided to the patient at time of visit by the technologist. This patient's information was entered into a reminder system with a target due date for their next mammogram. Electronically signed by: Lynette Pina DO 05/27/2025 09:27 AM EDT
--- OUTSIDE RECORDS SUMMARY | 2025-05-27 08:47 | XMS_ITS | Encounter Summary ---
Author Organization [employer] Address [address] [place] [address] Care Team Providers Care Job Site Superintendent Name Role Phone Coleen Bright MD Primary Care Provide r Reason for Visit * Reason Onset Date Comments Med Refill 05/26/2025 Encounter Details Date Type Department Care Team (Late st Contact Info) Description 05/26/2025 Telephone [facility] [address], [place] [phone] Coleen Bright MD [address] [place], [place] [phone] Med Refill Social History Tobacco Use Types Packs/Day Years Used Date Smoking Tobacco: Never Passive Smoke Exposure: Never Smokeless Tobacco: Never Depression Answer Date Recorded Patient Health Questionnaire-9 [...] Orientation Straight 08/21/2022 10 :36 AM EDT documented as of this encounter Miscellaneous Notes * Telephone Encounter - Flaquita Ramirez RN - 05/26/2025 2:00 PM EDT Noted. * Telephone Encounter - Kesha Velasquez - 05/26/2025 12:54 PM EDT Pt walked in stating she will stay with the medication she takes that she spoke to the pharmacy andthey told her the one she has its a better medication so she doesn't want to switch it. * Telephone Encounter - Julia Kaur - 05/26/2025 12:43 PM EDT Pt walked in requesting that pcp send original dose for ozempic prescription because the higher dose now is giving her side effects and patient states she gained weight and didn't lose any. documented in this encounter Plan of Treatment Not on file documented as of this encounter Visit Diagnoses Not on filedocumented in this encounter Additional Health Concerns Assessment Noted Time PHQ-9 Depression Total Score: 0 05/01/20 25 11:10 AM EDT documented as of this encounter Care Teams Job Site Superintendent Relationship Specialty Start Date End Date Coleen Bright MD [address] [place] [address] PCP - General Family Medicine 12/16/19 documented as of this encounter
== END 2025-05-27 08:37 | disposition home or self-care (01) ==
LOC: HO.MAMMO 08:36
PROVIDERS: PCP Internal Medicine; Visit Provider Internal Medicine
DX: N64.89 Other specified disorders of breast (principal)
CPT/HCPCS: 76642; 77061; 77065

== ENCOUNTER → 2025-05-27 09:00 | Outpatient (BNV) | payer OTHER, SELFPAY | PROVIDERS: PCP Internal Medicine; Visit Provider Internal Medicine | DX: R92.8 Other abnormal and inconclusive findings on diagnostic imaging of breast (principal) | CPT/HCPCS: 76642; 77065; G0279 ==